=== PATIENT | female | born 1980 | race Caucasian/White ===

== ENCOUNTER 2021-06-01 09:00 | Outpatient (CLI) | payer BC, SELFPAY ==
--- NOTE | ~2021-06-01 | MM_ITS ---
EXAMINATION: MM screening denny BI w demi HISTORY: Screening mammogram TECHNIQUE: Craniocaudal and mediolateral oblique 3-D tomosynthesis images were obtained and synthetic 2-D images were generated. CAD analysis was submitted and interpreted. COMPARISON: None, baseline BREAST PARENCHYMAL COMPOSITION: The breasts are heterogeneously dense, which may obscure small masses . FINDINGS: RIGHT BREAST: There is a possible low density mass in the middle third of the central breast. No susp icious calcification or architectural distortion are identified. LEFT BREAST: There is a possible mass in the posterior third of the inner breast. No suspicious calci fication or architectural distortion are identified. IMPRESSION: 1. Possible breast masses. 2. Additional mammographic views and possible breast ultrasound are recommended to evaluate for malig yun and establish a baseline given that this is the first mammographic examination. BI-RADS Category 0: Incomplete: Needs additional imaging evaluation. Reviewed, dictated and finalized at location A. LSTERY TRIMMER IMPRESSION: 1. Possible breast masses. 2. Additional mammographic views and possible breast ultrasound are recommended to evaluate for malignancy and establish a baseline given that this is the fir st mammographic examination. BI-RADS Category 0: Incomplete: Needs additional imaging evaluation.
== END 2021-06-01 09:01 | disposition home or self-care (01) ==
LOC: ANHIMG 09:03
PROVIDERS: PCP Physician Assistant; Visit Provider Physician Assistant
DX: Z12.31 Encounter for screening mammogram for malignant neoplasm of breast (principal); R92.8 Other abnormal and inconclusive findings on diagnostic imaging of breast
CPT/HCPCS: 77063; 77067

== ENCOUNTER 2021-06-24 12:11 | Outpatient (CLI) | payer BC, SELFPAY ==
--- NOTE | ~2021-06-24 | MMUS_ITS ---
EXAMINATION: MM diagnostic denny BI w demi, US breast BI limited HISTORY: Possible breast masses on baseline screening mammogram TECHNIQUE: Additional 3-D tomosynthesis images of the breasts were performed and synthetic 2-D images were generated. CAD analysis was submitted and interpreted. High resolution limited bilateral breast ultrasound was performed. COMPARISON: 06/01/2021 FINDINGS: MAMMOGRAPHIC FINDINGS: No definite mass is seen in either breast with spot compression. There is no suspicious calcification or architectural distortion. ULTRASOUND: There is no evidence of focal abnormal solid or cystic mass in the vicinity of the mammographic findi ng in the right breast. There is a 6 mm x 4 mm oval, circumscribed, parallel, hypoechoic mass with no posterior features or internal vascularity at the 8:00 location in the left breast 4 cm from the nip ple. IMPRESSION: 1. No mammographic evidence of malignancy in either breast. Probably benign sonographically detected left breast mass. 2. Recommend 6 month follow-up targeted left breast ultrasound. BI-RADS category 3, probably benign findings. Reviewed, dictated and finalized at location A. L OF FORTUNE DEALER IMPRESSION: 1. No mammographic evidence of malignancy in either breast. Probably benign son ographically detected left breast mass. 2. Recommend 6 month follow-up targeted left breast ultrasound. BI-RADS category 3, probably benign findings.
== END 2021-06-24 12:12 | disposition home or self-care (01) ==
LOC: ANHIMG 12:12
PROVIDERS: PCP Physician Assistant; Visit Provider Physician Assistant
DX: R92.8 Other abnormal and inconclusive findings on diagnostic imaging of breast (principal)
CPT/HCPCS: 76642; 77062; 77066; G0279

== ENCOUNTER → 2021-07-27 13:31 | Outpatient (REF) | payer BC, SELFPAY | LOC: ANHLAB 13:31 | PROVIDERS: PCP Physician Assistant; Visit Provider Nurse Practitioner | DX: L72.11 Pilar cyst (principal) | CPT/HCPCS: 88304 ==

== ENCOUNTER → 2021-11-05 09:26 | Outpatient (CLI) | payer BC, SELFPAY ==
--- NOTE | ~2021-11-05 | XR_ITS ---
EXAMINATION: XR thoracic spine 3V DATE: 11/05/2021 09:48 INDICATION: Chronic thoracic back pain. TECHNIQUE: 3 views of thoracic spine were obtained. COMPARISON: None. FINDINGS: There is 11 degrees dextroscoliosis of thoracic spine. Vertebral body heights are normal. T here is mild to moderately decreased disc height at multiple levels in mid and upper thoracic spine. There are endplate osteophytes at most levels. IMPRESSION: 1. Moderate thoracic spondylosis. 2. Thoracic dextroscoliosis. Reviewed, dictated and finalized at location A.
== END ==
PROVIDERS: PCP Physician Assistant; Visit Provider Physician Assistant
DX: M47.24 Other spondylosis with radiculopathy, thoracic region (principal)
CPT/HCPCS: 72072

== ENCOUNTER 2021-12-22 10:22 | Outpatient (CLI) | payer BC, SELFPAY ==
--- NOTE | ~2021-12-22 | US_ITS ---
US breast LT limited DATE: 12/22/2021 10:51 INDICATION: Six-month follow-up of left breast 8:00 lesion TECHNIQUE: Targeted real-time and color flow imaging at 8:00 4 cm from nipple COMPARISON: 06/24/2021 bilateral Limited breast ultrasound 06/24/2021 bilateral diagnostic mammogram FINDINGS: Stable parallel circumscribed hypoechoic lesion measuring approximately 3 x 6.3 mm, without internal vascularity or posterior shadowing. The sonographic features are benign. Stability since further supports benign diagnosis. IMPRESSION: BI-RADS Category 2: Benign Recommendation: Routine annual mammographic screening Reviewed, dictated and finalized at Location A. Reviewed, dictated and finalized at location A.
== END 2021-12-22 10:23 | disposition home or self-care (01) ==
PROVIDERS: PCP Physician Assistant; Visit Provider Physician Assistant
DX: R92.8 Other abnormal and inconclusive findings on diagnostic imaging of breast (principal)
CPT/HCPCS: 76642

== ENCOUNTER 2022-07-07 08:26 | Outpatient (CLI) | payer BC, SELFPAY ==
--- NOTE | ~2022-07-07 | MM_ITS ---
EXAMINATION: MM screening denny BI w demi HISTORY: Screening mammogram TECHNIQUE: Craniocaudal and mediolateral oblique 3-D tomosynthesis images were obtained and synthetic 2-D images were generated. CAD analysis was submitted and interpreted. COMPARISON: 12/22/2021 left Limited breast ultrasound examination 06/24/2021 diagnostic bilateral mammogram and Limited bilateral breast ultrasound examination 06/01/2021 bilateral screening mammogram BREAST PARENCHYMAL COMPOSITION: The breasts are extremely dense, which lowers the sensitivity of mamm ography. FINDINGS: There is no evidence of suspicious mass, calcification, or architectural distortion to sugg est malignancy in either breast. There has been no suspicious interval change. IMPRESSION: 1. No mammographic evidence of malignancy. 2. Recommend routine screening mammography in one year. BI-RADS Category 1: Negative Reviewed, dictated and finalized at location A. IVIST POLITICAL HISTORY
== END 2022-07-07 08:27 | disposition home or self-care (01) ==
LOC: ANHIMG 08:28
PROVIDERS: PCP Physician Assistant; Visit Provider Physician Assistant
DX: Z12.31 Encounter for screening mammogram for malignant neoplasm of breast (principal)
CPT/HCPCS: 77063; 77067

== ENCOUNTER 2023-09-08 14:10 | Outpatient (CLI) | payer BC, SELFPAY ==
--- NOTE | ~2023-09-08 | MM_ITS ---
EXAMINATION: MM screening denny BI w demi HISTORY: Screening TECHNIQUE: Craniocaudal and mediolateral oblique 3-D tomosynthesis images were obtained and synthetic 2-D images were generated. CAD analysis was submitted and interpreted. COMPARISON: Comparison to multiple prior studies sequentially, with oldest reviewed study dated 07/2021. BREAST PARENCHYMAL COMPOSITION: Dense: The breasts are extremely dense, which lowers the sensitivity of mammography. FINDINGS: There is no evidence of suspicious mass, calcification, or architectural distortion to sugg est malignancy in either breast. There has been no suspicious interval change. IMPRESSION: 1. No mammographic evidence of malignancy. 2. Recommend routine screening mammography in one year. BI-RADS Category 1: Negative Reviewed, dictated and finalized at location A.
== END 2023-09-08 14:11 | disposition home or self-care (01) ==
PROVIDERS: PCP Physician Assistant; Visit Provider Obstetrics & Gynecology
DX: Z12.31 Encounter for screening mammogram for malignant neoplasm of breast (principal)
CPT/HCPCS: 77063; 77067

== ENCOUNTER 2024-05-28 15:54 | Outpatient (CLI) | payer BC, SELFPAY ==
--- NOTE | ~2024-05-28 | XR_ITS ---
CHEST RADIOGRAPH, PA AND LATERAL CLINICAL HISTORY: Chronic cough, COUGH FOR 3 WEEKS . COMPARISON: None available TECHNIQUE: PA and lateral views of the chest. FINDINGS The cardiomediastinal silhouette is unremarkable. Increased density projecting over the bilateral mid to lower lung baer, felt to be overlying soft t issues rather than intrinsic parenchymal disease. The lungs are clear. Visualized osseous structures and soft tissues are unremarkable. IMPRESSION: No focal infiltrate or effusion. Reviewed, dictated and finalized at location A. IO CLINICIAN
== END 2024-05-28 15:55 | disposition home or self-care (01) ==
PROVIDERS: PCP Physician Assistant; Visit Provider Physician Assistant
DX: R05.3 Chronic cough (principal)
CPT/HCPCS: 71046

== ENCOUNTER 2024-09-13 16:07 | Outpatient (CLI) | payer BC, SELFPAY ==
--- NOTE | ~2024-09-13 | MM_ITS ---
EXAMINATION: MM screening denny BI w demi HISTORY: Screening TECHNIQUE: Craniocaudal and mediolateral oblique 3-D tomosynthesis images were obtained and synthetic 2-D images were generated. CAD analysis was submitted and interpreted. COMPARISON: Comparison to multiple prior studies sequentially, with oldest reviewed study dated 07/2021. BREAST PARENCHYMAL COMPOSITION: Dense: The breasts are extremely dense, which lowers the sensitivity of mammography. FINDINGS: There is a new mass in the lower inner quadrant of the left breast, posterior third. The ri ght breast is stable without evidence for malignancy. IMPRESSION: 1. New left breast mass. 2. Additional mammographic views and possible breast ultrasound are recommended. BI-RADS Category 0: Incomplete: Needs additional imaging evaluation. Reviewed, dictated and finalized at location B. IMPRESSION: 1. New left breast mass. 2. Additional mammographic views and possible breast ultrasound are recommended . BI-RADS Category 0: Incomplete: Needs additional imaging evaluation.
--- OUTSIDE RECORDS SUMMARY | 2024-09-13 16:10 | XMS_ITS | Data Portability ---
Author Organization [facility] Lupis PORTER Address [address] [place] [address] Care Team Providers Care Control System Computer Scientist Name Role Phone BINDU TERRELL Sales Service Coordinator Assessment Encounter Date Assessment Date Assessment LastModified by Organization Details LastModified Time 03/11/2016 03/11/2016 38 weeks, baby #4 arrives tuesday Not available 03/11/2016 15:50:43 04/26/2016 04/26/2016 Post exam following third c/s is normal. scar OK, baby great, bottle feeding, vasectomy planned Not available 04/26/2016 11:11:37 06/27/2024 06/27/2024 Mammogram scheduled for august [address] kemi govea, fall 2023, all clear [email or web address] Not available 06/27/2024 10:16:08 Plan of Treatment Reminders Order Date Submit Date Provider Last Modified By Organization Details Last Modified Time Details Appointments ANY 15 2025 09:00A GABBIE Bates Not available Not available Not available Lab vitami n D, 25-hyd sari, total, serum 2023 024 yuli [facility], [address], [place], [address], 06/14/2024 16:40:32 TSH + free T4, serum 2023 024 JU[email or web address], [address], [place], [address], 05/25/2024 09:47:57 lipid panel, serum 2023 024 [facility], [address], [place], [address], 05/25/2024 09:47:57 CMP, serum or plasma 2023 024 [facility], [address], [address], [place], [address], 06/14/2024 16:39:55 CBC w/ auto diff 2023 024 [facility], [address], [address], [place], [address], 06/14/2024 16:40:13 vitami n B12 + folate , serum or blood 2023 024 [facility], [address], [address], [place], [address], 05/25/2024 09:47:58 HbA1c (hemog lobin A1c), blood 2023 024 [facility], [address], [address], [place], [address], 06/14/2024 16:39:08 pap, LB + reflex to HR HPV if ASC-U 2015 016 [id number] [facility], [address] , [place], [address], 05/15/2016 04:32:38 Referral dermat ologis t referr al 2023 024 [facility], [address] [place] [address] , [place], [address], 11/10/2023 11:48:35 Procedures None record ed. Surgeries None record ed. Imaging None record ed. Medication Orders None record ed. Patient TargetsNo targets recorded. Patient InstructionsNo instructions recorded. Reason for Referral Satellite Tv Technician Referral for L esion of skin of face macular faint, erythematic type small lesion between eyebrows. Referring Physician: Odalys Mace, Internal Medicine, Encounter Date: 09/23/2023 Results Created Date Observation Date Name Description Value Unit Range Abnormal Flag Note LastModifiedBy Organization Detail LastModifiedTime 04/26/20 16 04/29/2016 pap, LB + refle x HPV mRNA E6/E7 clinical information: normal Postp artum FOLLO W-UP Not Available [address], [address], 04/29/2016 11:46:55 04/26/20 16 04/29/2016 pap, LB + refle x HPV mRNA E6/E7 LMP: normal INFOR MATIO N NOT PROVI DED Not Available [address], [address], 04/29/2016 11:46:55 04/26/20 16 04/29/2016 pap, LB + refle x HPV mRNA E6/E7 prev. Pap: normal INFOR MATIO N NOT PROVI DED Not Available [address], [address], 04/29/2016 11:46:55 04/26/20 16 04/29/2016 pap, LB + refle x HPV mRNA E6/E7 prev. BX: normal INFOR MATIO N NOT PROVI DED Not Available [address], [address], 04/29/2016 11:46:55 04/26/20 16 04/29/2016 pap, LB + refle x HPV mRNA E6/E7 source: Cervix normal Not Available [address], [address], 04/29/2016 11:46:55 04/26/20 16 04/29/2016 pap, LB + refle x HPV mRNA E6/E7 statement of adequacy: normal Satis facto ry for evalu ation . Endoc ervic al/tr ansfo rmati on zone compo nent prese nt. Not Available [address] [address] [place], [address], 04/29/2016 11:46:55 04/26/20 16 04/29/2016 pap, LB + refle x HPV mRNA E6/E7 interpretati on/result: normal Negat kaya for intra epith elial lesio n or malig yun . Not Available [address], [place], [address], 04/29/2016 11:46:55 04/26/20 16 04/29/2016 pap, LB + refle x HPV mRNA E6/E7 comment: normal This case could not be evalu ated with compu ter david abril techn ology . The slide was zita hicks chaim accor ding to felton latham . Not Available [address], [place], [address], 04/29/2016 11:46:55 04/26/20 16 04/29/2016 pap, LB + refle x HPV mRNA E6/E7 cytotechnolo gist: normal BKA, CT( CP) CT scree daphne locat ion: [address] [address] [place] [address] Not Available [address] [address] [place], [address], 04/29/2016 11:46:55 04/27/20 23 04/27/2023 pap, IG + HR HPV Pap, Ig+HR HPV negati ve Not Available Not Available 17:08:32 05/28/20 24 05/28/2024 XR, chest , 2 view No observ ation record ed. [facility] [address], [place], [address], 05/28/2024 18:00:51 Result Notes None recorded. Problems Name Problem SNOMED Code Status Onset Date Resolution Date Notes Provider Name and Address Organization Details Recorded Time Body mass index 20-24 - normal 290938451 Active 2024 Federica Lassiter MA null, [place] - [facility] 5 10:03:26 Vitamin D deficiency 71004533 Active 2024 GABBIE Elias Attn: Adriana g,[address] [facility], [place], [address], [place] [facility] 5 18:39:55 Long-term drug therapy Active 2024 GABBIE Elias Attn: Accountin g,[address] [facility], [place], [address], [place] [facility] 5 18:40:06 Past history of section 991349645 Active Emily Isryamileth nena [place], [place] [facility] 6 15:29:17 Past history of section 798874226 Completed Emily Isringnicolegabriele barrett null, [place] - [facility] 6 15:29:17 Problem Notes None recorded. Procedures Surgical History Date Name Laterality Status Provider Name and Address Organization Details Recorded Time 6 Suture/Staple removal completed Susana Santoro MA [place] [facility] 03/19/2016 14:39:29 8 Caesarean Section completed Susana Santoro [place] [facility] 09/17/2015 12:06:48 D & c after delivery completed Federica Lassiter [place] [facility] 09/23/2023 14:54:19 Imaging Results Imaging Date Name Status LastModified by Organiz ation Details LastModified Time 05/28/2024 XR, chest, 2 view completed [facility] [address], [place], [address], 05/28/2024 18:00:51 Procedure Notes None recorded. Medical Equipment None Reported. Allergies No known drug allergies Medications Name Sig Start Date Stop Date Status Note LastModified by Organization Details LastModified Time amoxicillin 500 mg capsule 09/22 completed Not Available Not Available Not Available azithromycin 250 mg tablet 09/22 completed Not Available Not Available Not Available benzonatate 200 mg capsule 09/22 completed Not Available Not Available Not Available hydrocodone 5 mg-acetamino phen 325 mg tablet 09/22 completed Not Available Not Available Not Available prednisone 20 mg tablet TAKE 2 TABLETS BY MOUTH EVERY DAY FOR 5 DAYS FOR COUGH. START 05-29-2406/27 completed Not Available Not Available Not Available ergocalcifer ol (vitamin D2) 1,250 mcg (50,000 unit) capsule TAKE 1 CAPSULE BY MOUTH EVERY WEEK active Not Available Not Available No t Available ibuprofen 600 mg tablet 09/22 completed Not Available Not Available Not Available cefdinir 300 mg capsule TAKE 1 CAPSULE BY MOUTH EVERY 12 HOURS 06/27 completed Not Available Not Available Not Available Fish Oil active Not Available Not Avai lable Not Available Vitamin B12 2,500 mcg tablet Take by oral route. active Not Available Not Available No t Available Vitals Date Recorded Body height Body mass index (BMI) Body weight Oxygen saturation Oxygen saturation in Arterial blood by Pulse oximetry Respiratory rate Heart rate Systolic blood pressure Diastolic blood pressure Provider Name and Address Organization Details Last Updated DateTime 4 162.56 cm 23.5 kg/m2 62947.5 9 g 99 % 99 % 20 /min 67 /min 108 mm[Hg] 68 mm[Hg] Federica Lassiter MA [facility] 14:21:52 Date Recorded Systolic blood pressure Diastolic blood pressure Provider Name and Address Organization Details Last Updated DateTime 09/23/2023 110 mm[Hg] 70 mm[Hg] GABBIE Elias Attn: Accounting,[address] [place], [address], [facility] 09/23/2023 14:46:11 Date Recorded Body height Body mass index (BMI) Body weight Respiratory rate Oxygen saturation Oxygen saturation in Arterial blood by Pulse oximetry Heart rate Systolic blood pressure Diastolic blood pressure Provider Name and Address Organization Details Last Updated DateTime 5 162.56 cm 23.7 kg/m2 07258.7 5 g 20 /min 100 % 100 % 68 /min 116 mm[Hg] 82 mm[Hg] Federica Lassiter MA [facility] 5 10:04:55 Date Recorded Systolic blood pressure Diastolic blood pressure Provider Name and Address Organization Details Last Updated DateTime 06/27/2024 120 mm[Hg] 80 mm[Hg] GABBIE Elias Attn: Accounting,[address] [facility], [place], [address], [facility] 06/27/2024 10:20:30 Date Recorded Body weight Body mass index (BMI) Body height Systolic blood pressure Diastolic blood pressure Provider Name and Address Organization Details Last Updated DateTime 03/11/2016 78621.22 498 g 26.4 kg/m2 162.56 cm 128 mm[Hg] 72 mm[Hg] Susana solano MA [facility] 6 15:28:54 Date Recorded Body height Body weight Body mass index (BMI) Systolic blood pressure Diastolic blood pressure Provider Name and Address Organization Details Last Updated DateTime 03/19/2016 162.56 cm 38917.52 417 g 24.2 kg/m2 112 mm[Hg] 66 mm[Hg] Susana solano MA [facility] 6 14:44:57 Date Recorded Body height Body weight Body mass index (BMI) Systolic blood pressure Diastolic blood pressure Provider Name and Address Organization Details Last Updated DateTime 04/26/2016 162.56 cm 42905.75 g 23.7 kg/m2 98 mm[Hg] 70 mm[Hg] Susana solano MA [facility] 6 10:59:34 Social History Question Answer Notes LastModified by Organizat ion Details LastModified Time Tobacco Smoking Status Never Smoker Susana Santoro MA null, [facility] 09/17/2015 11:39:29 What Is Your Level Of Alcohol Consumption? None Information not available 09/23/2023 Are You Blind Or Do You Have Difficulty Seeing? No Information n ot available 09/23/2023 What Is Your Level Of Caffeine Consumption? None Information not available 09/23/2023 In The 14 Days Before Symptom Onset, Have You Had Close Contact With A Laboratory-confirm ed COVID-19 While That Case Was Ill? No Information n ot available 09/23/2023 In The 14 Days Before Symptom Onset, Have You Had Close Contact With A Person Who Is Under Investigation For COVID-19 While That Person Was Ill? No Information not available 09/23/2023 Have You Been To An Area Known To Be High Risk For COVID-19? No Information not available 09/23/2023 Are You Currently Employed? Yes Information not available 09/23/2023 Are You Deaf Or Do You Have Serious Difficulty Hearing? No Information not available 09/23/2023 What Type Of Diet Are You Following? REGULAR Information n ot available 09/23/2023 What Is Your Occupation? [employer] Information not available 09/23/2023 Are There Any Guns Present In Your Home? No Information not available 09/23/2023 What Was The Date Of Your Most Recent Tobacco Screening? 06/27/2024 Information not available 06/27/2024 How Many Children Do You Have? 3 [email or web address] Information not available 09/17/2015 What Is Your Relationship Status? Information not available 09/23/2023 Do You Use Your Seat Belt Or Car Seat Routinely? Yes Information not available 09/23/2023 Do You Have Smoke And Carbon Monoxide Detectors In Your Home? Yes Information not available 09/23/2023 Do You Feel Stressed (tense, Restless, Nervous, Or Anxious, Or Unable To Sleep At Night)? [id number] Information not available 09/23/2023 Do You Use Any Illicit Or Recreational Drugs? No Information not available 09/23/2023 Do You Use Sunscreen Routinely? No Information not available 09/23/2023 Has Tobacco Cessation Counseling Been Provided? Yes Information not available 09/23/2023 On What Date Was Tobacco Cessation Counseling Provided? 06/27/2024 Information not available 06/27/2024 Do You Or Have You Ever Used Any Other Forms Of Tobacco Or Nicotine? No Information not available 09/23/2023 Sex: Female Functional Status Question Answer Note LastModified by Organizat ion Details LastModified Time Are you able to care for yourself? Yes Information not available 09/23/2023 What is your exercise level? Occasional walking Information not available 09/23/2023 Mental Status None recorded. Family History Relationship Description Onset Age of this Age Resolved Age Notes LastModified by Organization Details LastModified Time Paternal Grandmother Malignant tumor of breast [email or web address] Not available 15:28:54 Father Alcohol abuse [email or web address] Not available 2023 14:54:35 Father Hypercholest erolemia [email or web address] Not available 2023 14:55:14 Brother Asthma [email or web address] Not available 09/23/2023 14:54:39 Brother Depressive disorder [email or web address] Not available 2023 14:54:47 Mother Heart disease [email or web address] Not available 2023 14:54:59 Mother Hypertensive disorder [email or web address] Not available 2023 14:55:07 Mother Hypercholest erolemia [email or web address] Not available 2023 14:55:14 Mother Migraine [email or web address] Not availabl e 09/23/2023 14:55:20 Mother Myocardial infarction [email or web address] Not available 09/22 14:55:27 Mother Osteoporosis [email or web address] Not avai lable 09/23/2023 14:55:34 Notes:other CA Medical History Condition Response Coronary Artery Disease N Kidney Cyst N Blood Diseases N Hyperthyroidism N Blood disorders N Blood Transfusion N MRSA N Emphysema N Depression N COPD N Blood Clots N Pneumonia N Premature N Peripheral Arterial Disease N Edema N TIA N Headaches/Migraines N Anxiety Disorder N Obesity N Polyps N Infertility N Acid Reflux (GERD) N Hematuria N Stroke N Neck Injury N Polio N Hospital Admission other than N Neurologic Disorder N Other Sleep Disorders N Rheumatoid Arthritis N Fibromyalgia N Abdominal Aortic Aneurysm Repair N Kidney Disease N Heart Conditions N Heart Disease/Heart Problems N Hospitalizations N Brain Tumors N Acne N Skin Problems N Eating Disorder N Meningitis N Constipation N Tuberculosis N Cerebral Palsy N Myocardial Infarction N Asthma N Substance Abuse N Peripheral Vascular Disease N Vertigo N Sleep Disorder N Cirrhosis N Pulmonary Embolism N Chicken Pox N Hematologic Disease N Flomax Use Past or Present N Anxiety/Depression N Thyroid Disease N Colon Cancer N Lung Disease N Glaucoma N Developmental or Behavioral Disorders N Bipolar N Pacemaker N Diverticulitis/Diverticulosis N Orthopedic Problems N Anesthesia Complications N Orthotics N Head Injury/Concussion N Congenital Anomalies N Montes Bite N Chronic Kidney Disease N Endometriosis N Liver Disease N Schizophrenia N Dialysis N Speech Delay N Chronic Obstructive Pulmonary Disease N Parkinson's Disease N Thyroid Problems N GI Problems N Developmental Delay N Anemia N Multiple Sclerosis N Immune System Disorder N Colon Polyps N Heart Attack ([place]) N Diabetes N Cardiomyopathy N Blood Transfusions N Heart Problems/Murmur N Eye Trauma N Congestive Heart Failure (CHF) N Valvular Heart Disease N Hyperlipidemia N Double Vision N Abuse/Domestic Violence N Hepatitis B N Lupus N Epilepsy/Seizures N Reflux/GERD N Aneurysm N Heart Disease N Bronchitis N Pre-Eclampsia N Hypertension N Heart Failure N Other N Gout N High Blood Pressure N Atrial Fibrillation N Kidney Stones N Head Trauma/Injury N Congenital Heart Disease N Spine Problems N Gastrointestinal Disease N Lung Mass N Sinusitis N Obstructive Sleep Apnea N Muscle, Joint, or Bone Problems N Autoimmune disease N Vision or Eye Problems N Arthritis N Blood Clot N Cancer N Seasonal allergies N Leg or Foot Ulcers N Raynaud's Disease N Aortic Aneurysm N Arrhythmia N Headaches N Heart Problems N Ambloypia N Ear or Hearing Problems N Hyperparathyroidism N Migraines N Artificial Joints N Kidney or Bladder Problems N NSAID Use N Encephalitis N PTSD N Ulcers N Prostate Hypertrophy N Bleeding Disorder N AIDS/HIV N Urinary Tract Infection N Back Problems N Allergies N Atrial Flutter N GERD/Reflux N Hepatitis N Autism Spectrum Disorder (ASD) N Breast Cancer N Hernia N Hypothyroidism N Breast Problem N Genitourinary Disease N Deep Vein Thrombosis N Varicose Veins N Cystic Fibrosis N Hearing Loss N Developmental Problems N Carotid Disease N Vitamin D Deficiency N ADHD N Bladder or Kidney Problems N High Cholesterol N Meniers N Valvular Abnormalities N Psychiatric/Mental Health Condition N Organ Transplant N Foot Deformity N Allergies/Hayfever N Dyslipidemia N Hyponatremia N Diabetic Eye Disease N Osteoporosis/Osteopenia N Back Pain N Proteinuria N Mental Illness N Neurological Problems N Ovarian Cancer N Bedwetting N Seizures/Epilepsy N Kidney Failure N Ocular trauma N Diverticulitis N Dementia N Sleep Apnea N Mental Problems N Warfarin Management N Osteoporosis N Gynecological History Statement/Question Response Flow Moderate Date of LMP 05/13/2024 Menses Monthly Y Duration of Flow (days) 5 Current Control Method None LMP Approximate Desired Control Method Partner Vas ectomy Obstetrics History GPAL:G 4 P 2 2 1 4 Type Value Multiple Births 2 Full Term 2 Induced 0 Spontaneous 1 Premature 2 Living 4 Total 4 Immunizations Vaccine Type Date Status Note Provider Nam e and Address Organization Details Recorded Time Influenza, MDCK, quadrivalent, PF 0 completed SHANA [place], [place] [facility] 06/27/2024 10:03:00 COVID-19, mRNA, LNP-S, PF, 100 mcg/0.5mL dose or 50 mcg/0.25mL dose 1 completed SHA[place] [facility] 06/27/2024 10:03:00 COVID-19, mRNA, LNP-S, PF, 100 mcg/0.5mL dose or 50 mcg/0.25mL dose 1 completed SHA[place] [facility] 06/27/2024 10:03:00 COVID-19, mRNA, LNP-S, PF, 100 mcg/0.5mL dose or 50 mcg/0.25mL dose 1 completed SHA[place] [facility] 06/27/2024 10:03:00 Tdap 6 completed SHA[place] [facility] 06/27/2024 10:03:00 Tdap 5 completed SHA[place] [facility] 06/27/2024 10:03:00 Influenza, split virus, trivalent, preservative 1 completed SHA[place] [facility] 06/27/2024 10:03:00 Influenza, split virus, quadrivalent, PF 6 completed SHA[place] [facility] 06/27/2024 10:03:00 Past Encounters Encounter ID Performer Location Encounter Start Date Encounter Closed Date Diagnosis/Indication Diagnosis SNOMED-CT Code Diagnosis ICD10 Code Diagnosis Note [id number] [facility] ([address]) [address] [place] [address] 09/17/2015 11:15:41 09/18/2015 12:28:46 Normal 85874391 Z34.91 Past pregn nayely history of section 482744891 Z98.89 [id number] Emily [facility] ([place] [address]) [address] [place] [address] 10/13/2015 14:14:28 10/13/2015 16:00:01 Normal 54352980 Z34.91 [id number] Emily Brightsissy [facility] ([place] [address]) [address] [place] [address] 11/06/2015 15:11:48 11/06/2015 16:33:30 Normal 05208828 Z34.91 Past pregn nayely history of section 009769652 Z98.89 [id number] Patricia Tobar RN [facility] ([place] [address]) [address] [place] [address] 12/04/2015 11:55:46 12/04/2015 18:20:39 Normal 99056161 Z34.91 Past pregn nayely history of section 644190889 Z98.89 [id number] MD [facility] Ros[facility] ([place] [address]) [address] [place] [address] 12/25/2015 14:20:37 12/25/2015 15:26:11 Normal 02757865 Z34.91 Past pregn nayely history of section 150835826 Z98.89 [id number] MD [facility] ([place] [address]) [address] [place] [address] 01/15/2016 11:12:15 01/15/2016 14:27:53 Normal 58705147 Z34.91 Past pregn nayely history of section 299432929 Z98.89 [id number] MD [facility] ([place] [address]) [address] [place] [address] 02/06/2016 11:34:12 02/06/2016 12:57:50 Normal 20224247 Z34.91 Past pregn nayely history of section 264519016 Z98.89 [id number] MD A[facility]ina [facility] ([place] [address]) [address] [place] [address] 02/23/2016 10:44:52 02/23/2016 13:04:46 Normal 57888186 Z34.91 Past pregn nayely history of section 252966528 Z98.89 [id number] MD A[facility]ina Rosas ([place] [address]) [address] [place] [address] 03/01/2016 14:46:14 03/01/2016 16:17:08 Normal 57087368 Z34.91 Past pregn nayely history of section 897964615 Z98.89 [id number] MD A[facility]ina Rosas ([place] [address]) [address] [place] [address] 03/11/2016 15:15:40 03/12/2016 12:14:15 Normal 57243791 Z34.91 Past pregn nayely history of section 232364667 Z98.190 [id number] MD [facility]ina [facility] ([place] [address]) [address] [place] [address] 03/19/2016 14:08:58 03/22/2016 10:12:10 Removal of juan david 67883641 Z48.02 [id number] MD [facility]ina [facility] ([place] [address]) [address] [place] [address] 04/26/2016 10:40:40 04/26/2016 14:32:49 care 983487915 Z39.2 [id number] GABBIE Elias [facility] [address] [place] [address] 09/23/2023 14:04:24 09/23/2023 14:53:57 Lesion of skin of face 5701576474 06 L98.9 refer to Derm for skin lesion evaluation Cholesterol screening 27 3565895 Z13.220 fasting lipids due in apr. Diabetes m ellitus screening 391799386 Z13.1 a1c screening in Dec Long-term drug therapy 229370578 Z79.899 cmp, cbc and b12, folate labs are due in dec Vitamin D deficiency 347 31251 E55.9 pt is on high dose Rx. will check updated vit D lab in dec Thyroid di sorder screening 687602247 Z13.29 screening thyroid labs are due in apr. [id number] GABBIE Elias [facility] Jarad Murray [address] [place] [address] 06/27/2024 09:39:18 06/27/2024 10:25:32 Body mass index 20-24 - normal 245522717 Z68.23 BMI is 23.7 Vitamin D deficiency 347 34005 E55.9 Patient is taking vitamin-D high-dose supplement once weekly Long-term drug therapy 729324264 Z79.899 All labs are reviewed and up-to-date Adult [facility] examination 190229094 Z00.00 Annual wellness exam completed Health Concerns Section Related Observation LastModified by Organization Detai ls LastModified Time None Recorded Concern Status LastModified by Organization Details LastModified Time None Recorded Advance Directives Directive None Recorded Payers Encounter Date Sequence Insurance Name Policy Number Policy Broderick Covered Member ID Broderick Member ID Guarantor Name 03/11/2016 1 [facility] Glad to Have You [employer] ([facility]) [id number] [employer] [id number] [employer] 03/19/2016 1 [facility] [employer] to [employer] You [employer] ([facility] [employer]) [id number] [employer] [id number] [employer] 04/26/2016 1 [facility] [employer] ([employer]) [id number] [employer] [id number] [employer] 09/23/2023 1 [facility] [id number] [employer] [id number] [employer] 06/27/2024 1 [facility] [id number] [employer] [id number] [employer] Notes Date Note Type Note Provider Name and Address Organization Details Recorded Time 09/23/2023 text/html pt here to re-establish. she needs Derm referral for faint forehead skin lesion that she noted. is due for routine labs. GABBIE Elias Attn: Accounting,[address] [place], [address], [facility] 09/29/2023 00:09:42 06/27/2024 text/html Patient is here for annual wellness exam. She does take vitamin-D high-dose supplement for deficiency and has labs up-to-date. She has no new complaints. GABBIE Elias Attn: Accounting,[address] [facility], [place], [address], [facility] 06/27/2024 18:40:34 OBGyn Episode Ob Episode Information Episode Created Date Number of Fetuses Patient Bloodtype Patient rh Status Prepregnancy Weight lbs Domestic Partner Domestic Partner Phone Father Name Assembler Engine Status 09/17/19 16 2 CLOSED Fetus Data First Name Last Name Admitted to NICU Weight (g) Sex Living Outcome Pediatric Complications Fetus ID Race Codes Race Delivery Type 1559.22 25 M Prematur e [id number] 1871.06 7 M Prematur e [id number] Carl Calculation Initial Carl Date Initial Exam Date Initial Exam Provider Initial Ultrasound Date Last Menstrual Period Date Ultra Sound Weeks Gestation 0 Eighteen To Twenty Week Carl Update Ultra Sound Date Fundal Height At Umbil Quickening Date Ultra Sound Latest Weeks Gestation Final Carl Confirmed By Final Carl Confirmed Date Final Carl Date Ultra Sound Latest Days Gestation 0 0 Menstrual History Last Menstrual Date Menses Monthly On Bcp Conception Prior Menses Frequency Hcg Plus Date Menarche Onset Age Delivery Information Delivery Date Delivery Type Labor Anesthesia Weeks Gestation Incision Type Labor Labor Length Hrs Delivered By Post Complications Tubal Sterilization Discharge Date Comments [address] [place] [address] [place]. Discharge Information Feeding Method Contraceptive Method Maternal HG B and HCT Levels Ob Episode Information Episode Created Date Number of Fetuses Patient Bloodtype Patient rh Status Prepregnancy Weight lbs Domestic Partner Domestic Partner Phone Father Name Assembler Engine Status 09/17/19 16 1 CLOSED Fetus Data First Name Last Name Admitted to NICU Weight (g) Sex Living Outcome Pediatric Complications Fetus ID Race Codes Race Delivery Type 2778.25 1 F Full Term [id number] Carl Calculation Initial Carl Date Initial Exam Date Initial Exam Provider Initial Ultrasound Date Last Menstrual Period Date Ultra Sound Weeks Gestation 0 Eighteen To Twenty Week Carl Update Ultra Sound Date Fundal Height At Umbil Quickening Date Ultra Sound Latest Weeks Gestation Final Carl Confirmed By Final Carl Confirmed Date Final Carl Date Ultra Sound Latest Days Gestation 0 0 Menstrual History Last Menstrual Date Menses Monthly On Bcp Conception Prior Menses Frequency Hcg Plus Date Menarche Onset Age Delivery Information Delivery Date Delivery Type Labor Anesthesia Weeks Gestation Incision Type Labor Labor Length Hrs Delivered By Post Complications Tubal Sterilization Discharge Date Comments 8 [facility] [place] Discharge Information Feeding Method Contraceptive Method Maternal HG B and HCT Levels Ob Episode Information Episode Created Date Number of Fetuses Patient Bloodtype Patient rh Status Prepregnancy Weight lbs Domestic Partner Domestic Partner Phone Father Name Assembler Engine Status 09/17/19 16 2 DELETED Carl Calculation Initial Carl Date Initial Exam Date Initial Exam Provider Initial Ultrasound Date Last Menstrual Period Date Ultra Sound Weeks Gestation 0 Eighteen To Twenty Week Carl Update Ultra Sound Date Fundal Height At Umbil Quickening Date Ultra Sound Latest Weeks Gestation Final Carl Confirmed By Final Carl Confirmed Date Final Carl Date Ultra Sound Latest Days Gestation 0 0 Menstrual History Last Menstrual Date Menses Monthly On Bcp Conception Prior Menses Frequency Hcg Plus Date Menarche Onset Age Delivery Information Delivery Date Delivery Type Labor Anesthesia Weeks Gestation Incision Type Labor Labor Length Hrs Delivered By Post Complications Tubal Sterilization Discharge Date Comments 0 33 Discharge Information Feeding Method Contraceptive Method Maternal HG B and HCT Levels Ob Episode Information Episode Created Date Number of Fetuses Patient Bloodtype Patient rh Status Prepregnancy Weight lbs Domestic Partner Domestic Partner Phone Father Name Assembler Engine Status 09/17/19 16 1 O Positive Desires [facility] delivery CLOSED Fetus Data First Name Last Name Admitted to NICU Weight (g) Sex Living Outcome Pediatric Complications Fetus ID Race Codes Race Delivery Type Silvia aleksey Gould false 3798.83 3 F true Full Term [id number] White Problems Problem Notes Problem Name Start Date End Date Resolution Snomed Code Not e Past history of ce sarean section [id number] Carl Calculation Initial Carl Date Initial Exam Date Initial Exam Provider Initial Ultrasound Date Last Menstrual Period Date Ultra Sound Weeks Gestation 03/22/2016 09/17/2015 [email or web address] 10/23/2015 06/16/2015 18 Eighteen To Twenty Week Carl Update Ultra Sound Date Fundal Height At Umbil Quickening Date Ultra Sound Latest Weeks Gestation Final Carl Confirmed By Final Carl Confirmed Date Final Carl Date Ultra Sound Latest Days Gestation 0 03/22/20 16 0 Pre-sheryl Flowsheet Flowsheet Date 09/17/2015 Andrea Score Blood Edema Fundus Height Fundus Units Glucose Ketones Leukocytes Nitrite Labor Signs Protein Cervic Dilation Cervic Effacement Cervic Station 13 wks 0cm 0% -4 Type Weight in lbs Pre/Post Dialysis Refused 133.861789477601 BP Diastolic BP Location Tested BP Systolic BP Type 62 92 sitting Fetus Heart Rate Present A 156 Present Fetus Movement Comments Previous c/s x 2 , plan repe at at 39 weeks, doing well Flowsheet Date 10/13/2015 Andrea Score Blood Edema Fundus Height Fundus Units Glucose Ketones Leukocytes Nitrite Labor Signs Protein Cervic Dilation Cervic Effacement Cervic Station none neg Type Weight in lbs Pre/Post Dialysis Refused 136.973629258339 BP Diastolic BP Location Tested BP Systolic BP Type 64 106 sitting Fetus Heart Rate Present A 155 Present Fetus Movement Comments 17 weeks, doing well. US nex t week, maybe msafp next apt. Flowsheet Date 11/06/2015 Andrea Score Blood Edema Fundus Height Fundus Units Glucose Ketones Leukocytes Nitrite Labor Signs Protein Cervic Dilation Cervic Effacement Cervic Station 20 wks Type Weight in lbs Pre/Post Dialysis Refused 139.881841675256 BP Diastolic BP Location Tested BP Systolic BP Type 62 92 sitting Fetus Heart Rate Present A 156 Present Fetus Movement A Yes Comments Girl #2 (out of 4) declines [facility].Would like BTL but is going to [facility] due to insurance - likely vasectomy? Flowsheet Date 12/04/2015 Andrea Score Blood Edema Fundus Height Fundus Units Glucose Ketones Leukocytes Nitrite Labor Signs Protein Cervic Dilation Cervic Effacement Cervic Station 24 cm Type Weight in lbs Pre/Post Dialysis Refused BP Diastolic BP Location Tested BP Systolic BP Type Fetus Heart Rate Present Fetus Movement A Yes Comments doing well, discussed sugar testcomputers down today Flowsheet Date 12/25/2015 Andrea Score Blood Edema Fundus Height Fundus Units Glucose Ketones Leukocytes Nitrite Labor Signs Protein Cervic Dilation Cervic Effacement Cervic Station 26 cm Type Weight in lbs Pre/Post Dialysis Refused 145.0333787932 BP Diastolic BP Location Tested BP Systolic BP Type 56 104 sitting Fetus Heart Rate Present A 143 Present Fetus Movement A Yes Comments doing well, passed sugar jay t, no new issues Flowsheet Date 01/15/2016 Andrea Score Blood Edema Fundus Height Fundus Units Glucose Ketones Leukocytes Nitrite Labor Signs Protein Cervic Dilation Cervic Effacement Cervic Station none 28 cm none neg Type Weight in lbs Pre/Post Dialysis Refused 146.481168294567 BP Diastolic BP Location Tested BP Systolic BP Type 66 98 sitting Fetus Heart Rate Present A 142 Fetus Movement A Yes Comments 30 weeks, doing well, no new issues Priyanka for girls name - plan 39 week repeat c/s Flowsheet Date 02/06/2016 Andrea Score Blood Edema Fundus Height Fundus Units Glucose Ketones Leukocytes Nitrite Labor Signs Protein Cervic Dilation Cervic Effacement Cervic Station 31 cm Type Weight in lbs Pre/Post Dialysis Refused 149.899536053379 BP Diastolic BP Location Tested BP Systolic BP Type 76 108 sitting Fetus Heart Rate Present A 146 Present Fetus Movement A Yes Comments Great questions. Repeat c/s planned for 03/15 @ [facility] Flowsheet Date 02/23/2016 Andrea Score Blood Edema Fundus Height Fundus Units Glucose Ketones Leukocytes Nitrite Labor Signs Protein Cervic Dilation Cervic Effacement Cervic Station 33 cm Type Weight in lbs Pre/Post Dialysis Refused 154.398850588882 BP Diastolic BP Location Tested BP Systolic BP Type 68 98 sitting Fetus Heart Rate Present A 156 Present Fetus Movement A Yes Comments Repeat c/s in 3 weeks, doing well, no issues Flowsheet Date 03/01/2016 Andrea Score Blood Edema Fundus Height Fundus Units Glucose Ketones Leukocytes Nitrite Labor Signs Protein Cervic Dilation Cervic Effacement Cervic Station 34 cm Type Weight in lbs Pre/Post Dialysis Refused 155.11875008576 BP Diastolic BP Location Tested BP Systolic BP Type 62 110 sitting Fetus Heart Rate Present A 142 Present Fetus Movement A Yes Comments Busy mom of 3, repeat c/s in 2 weeksdoing great Flowsheet Date 03/11/2016 Andrea Score Blood Edema Fundus Height Fundus Units Glucose Ketones Leukocytes Nitrite Labor Signs Protein Cervic Dilation Cervic Effacement Cervic Station 35 cm Type Weight in lbs Pre/Post Dialysis Refused 154.352048090474 BP Diastolic BP Location Tested BP Systolic BP Type 72 128 sitting Fetus Heart Rate Present A 141 Present Fetus Movement A Yes Comments doing well. c/s is Tuesday! Flowsheet Date 03/19/2016 Andrea Score Blood Edema Fundus Height Fundus Units Glucose Ketones Leukocytes Nitrite Labor Signs Protein Cervic Dilation Cervic Effacement Cervic Station Type Weight in lbs Pre/Post Dialysis Refused 141.018813127302 BP Diastolic BP Location Tested BP Systolic BP Type 66 112 sitting Fetus Heart Rate Present Fetus Movement Comments Menstrual History Last Menstrual Date Menses Monthly On Bcp Conception Prior Menses Frequency Hcg Plus Date Menarche Onset Age 0106/16/2015 Delivery Information Delivery Date Delivery Type Labor Anesthesia Weeks Gestation Incision Type Labor Labor Length Hrs Delivered By Post Complications Tubal Sterilization Discharge Date Comments 6 None [facility] [address] Low [address] e false Dr. Vizcarra 03/17/2016 Discharge Information Feeding Method Contraceptive Method Maternal HG B and HCT Levels Breast
--- OUTSIDE RECORDS SUMMARY | 2024-09-13 16:10 | XMS_ITS | Clinical Summary ---
Author Organization [facility] Address [address] [place] [address] Care Team Providers Care Ground Transportation Operator Name Role Phone Odalys Patino Primary Care Pr ovider Source Comments [facility],non-owned Affiliates and Associated Physician Practices is amultiple site organization consisting of ambulatory clinics and hospital sitesin [place], [place], [place] and [place]. This disclosure is being madepursuant to the Care Everywhere program and may not contain all information available regarding this patient. Last updated 18.[facility] Social History Tobacco Use Types Packs/Day Years Used Date Smoking Tobacco: Never Assessed Comments Unknown Sex and Gender Information Value Date Recorded Sex Assigned at Not on file Legal Sex Female 11:14 AM CDT Gender Identity Not on file Sexual Orientation Not on file Plan of Treatment Health Maintenance Due Date Last Done Comments LIPID TESTING 1981 MAMMOGRAM 1981 PAP SMEAR 1981 HIV SCREENING 01/29/1996 HEPATITIS C SCREENING 01/24/1999 DTAP/TDAP/TD VACCINES (1 - Tdap) 01/29/2000 HEPATITIS B VACCINE (1 of 3 - 19+ 3-dose series) 01/29/2000 COVID-19 VACCINE ( - 2023-2 5 season) 2024 DEPRESSION SCREENING 05/30/2024 INFLUENZA VACCINE (Season Ended) 2025 ZOSTER VACCINE (1 of 2) 2031 HIB VACCINE Aged Out No longer eligi ble based on patient's age to complete this topic HPV VACCINE Aged Out No longer eligi ble based on patient's age to complete this topic MENINGOCOCCAL (Group B) VACC INE SHARED DECISION-MAKING Aged Out No longer eligibl e based on patient's age to complete this topic MENINGOCOCCAL GROUPS A/C/Y/W VACCINE Aged Out No longer eligible b ased on patient's age to complete this topic PNEUMOCOCCAL VACCINE Aged Out No long er eligible based on patient's age to complete this topic Insurance Care Teams Ground Transportation Operator Relationship Specialty Start Date End Date Odalys Patino PA [address] [place] [address] PCP - General 07/30/21
--- OUTSIDE RECORDS SUMMARY | 2024-09-13 16:10 | XMS_ITS | Clinical Summary ---
Author Organization [facility] Address [address] [place] [address] Phone Care Team Providers Care Activity Director Name Role Phone Unavailable Primary Care Provider Unavailabl e Allergies No known active allergies Medications Vit-Fe Fumarate-FA ( VITAMIN PO) Take by mouth. Active [id number]-[id number]-[id number] in-Petrolatum (PREPARATION H RE) by Rectal route. Active HYDROcodone-acet aminophen (NORCO) 5-325 MG Tablet Take 1-2 Tabs by mouth every 4 hours as needed. 30 Tab 0 03/17/2016 Active ibuprofen (MOTRIN) 600 MG Tablet Take 1 Tab by mouth every 6 hours as needed. 30 Tab 3 03/17/2016 Active Immunizations Immunization Administration Dates Next Due Influenza Vaccine, Quadrivalent, PF 03/17/2016 TDAP Vaccine 03/17/2016 Family History Medical History Relation Name Comments High Cholesterol Father Heart Disease Mother High Cholesterol Mother Relation Name Status Comments Father Alive Mother Alive Social History Tobacco Use Types Packs/Day Years Used Date Smoking Tobacco: Never Alcohol Use Standard Drinks/Week Comments No 0 (1 standard drink = 0.6 oz pur e alcohol) Comments No Sex and Gender Information Value Date Recorded Sex Assigned at Not on file Legal Sex Female 3:27 PM CDT Gender Identity Not on file Sexual Orientation Not on file Last Filed Vital Signs Vital Sign Reading Time Taken Comments Blood Pressure 121/71 03/17/2016 3:00 PM CDT Pulse 76 03/17/2016 3:00 PM CDT Temperature 36 C (96.8 F) 03/17/2016 3:00 PM CDT Respiratory Rate 18 03/17/2016 3:00 PM CDT Oxygen Saturation 98% 03/17/2016 12:00 AM CDT Inhaled Oxygen Concentration - - Weight 69.9 kg (154 lb) 03/15/2016 5:56 AM CDT Height 162.6 cm (5' 4 ) 03/15/2016 5:56 AM CDT Body Mass Index 26.43 03/15/2016 5:56 AM CDT Plan of Treatment Health Maintenance Due Date Last Done Comments Hepatitis C Virus (HCV) Screening 1981 Hepatitis B Immunization (1 of 3 - 19+ 3-dose series) 01/29/2000 Pap Smear 2002 Cervical Cancer Screening (CCS) 2011 HPV/Cotest 2011 Discussion re Starting/Frequ ency of Mammograms 2021 Influenza Immunization (#1) 2024 03/17/2016 SARS-COV-2 Immunization (2023- season) 2024 Respiratory Syncytial Virus (RSV) Immunization (Adult) (1 - 1-dose 75+ series) 01/29/2056 DTaP/Tdap/Td Immunization Discontinued 03/17/2016 Meningococcal Immunization (ACWY) Aged Out No longer eligible based on patient's age to complete this topic Pneumococcal Immunization Combined Aged Out No longer eligible b ased on patient's age to complete this topic Rotavirus Immunization Aged Out No lo nger eligible based on patient's age to complete this topic Advance Directives * Full Code (Latest Code Status on File) Date Activated Date Inactivated Comments 03/15/2016 5:33 AM 03/17/2016 8:49 PM CPR-Full T reatment: FULL ARREST: Attempt Resuscitation/CPR wit intubation and mechanical ventilation. PRE-ARREST: Use entire range of life support measures to stabilize the patient.
== END 2024-09-13 16:08 | disposition home or self-care (01) ==
PROVIDERS: PCP Physician Assistant; Visit Provider Obstetrics & Gynecology
DX: Z12.31 Encounter for screening mammogram for malignant neoplasm of breast (principal); R92.8 Other abnormal and inconclusive findings on diagnostic imaging of breast
CPT/HCPCS: 77063; 77067

== ENCOUNTER 2024-09-24 10:40 | Outpatient (CLI) | payer BC, SELFPAY ==
--- NOTE | ~2024-09-24 | MMUS_ITS ---
EXAMINATION: MM diagnostic denny LT w demi, US breast LT limited HISTORY: Left breast asymmetry TECHNIQUE: Additional 3-D tomosynthesis images of the left breast were performed and synthetic 2-D im ages were generated. CAD analysis was submitted and interpreted. High resolution limited left breast ultrasound was performed. COMPARISON: 09/13/2024, 09/08/2023, 07/07/2022 BREAST PARENCHYMAL COMPOSITION:Dense: The breasts are extremely dense, which lowers the sensitivity o f mammography. FINDINGS: MAMMOGRAPHIC FINDINGS: Spot compression images demonstrate a persistent low-density circumscribed mass in the lower, inner a spect measuring 6 mm in diameter. ULTRASOUND: At the 9:00 position left breast, 3 cm from the nipple, there is a 9 x 10 x 5 mm circumscribed, wider than tall mass, hypoechoic. No posterior shadowing. This could reflect a cluster of cysts versus pos sibly solid mass. IMPRESSION: Probable benign 9 x 10 x 5 mm circumscribed mass at the 9:00 position left breast, as detailed above . 6 month follow-up ultrasound recommended to reassess. BI-RADS category 3, probably benign findings. Reviewed, dictated and finalized at location M. IMPRESSION: Probable benign 9 x 10 x 5 mm circumscribed mass at the 9:00 position left logan ast, as detailed above. 6 month follow-up ultrasound recommended to reassess. BI-RADS category 3, probably benign findings.
--- OUTSIDE RECORDS SUMMARY | 2024-09-24 12:32 | XMS_ITS | Clinical Summary ---
Author Organization [facility] Address [address] [place] [address] Phone Care Team Providers Care Artist Blacksmith Name Role Phone Unavailable Primary Care Provider Unavailabl e Allergies No known active allergies Medications Vit-Fe Fumarate-FA ( VITAMIN PO) Take by mouth. Active [id number] in-Petrolatum (PREPARATION H RE) by Rectal route. [...]
--- OUTSIDE RECORDS SUMMARY | 2024-09-24 12:32 | XMS_ITS | Clinical Summary ---
Author Organization [facility] Address [address] [place] [address] Care Team Providers Care Manager Of Case Name Role Phone Odalys Patino Primary Care Pr ovider Source Comments [facility],non-owned Affiliates and Associated Physician Practices is amultiple site organization consisting of ambulatory clinics and hospital sitesin [place], [place], [place] and [place]. This disclosure is being madepursuant to the Care Everywhere program and may not contain all information available regarding this patient. Last updated 18.[facility] Social History Tobacco Use Types Packs/Day Years [...] to complete this topic Insurance Care Teams Manager Of Case Relationship Specialty Start Date End Date Odalys Patino PA [address] [place] [address] PCP - General 07/30/21
--- OUTSIDE RECORDS SUMMARY | 2024-09-24 12:32 | XMS_ITS | Data Portability ---
Author Organization [facility], Main Office Address [address] [place] [address] Assessment Encounter Date Assessment Date Assessment LastModified by Organization Details LastModified Time 05/02/2023 05/02/2023 Pap smear UTD mammogram 08/2023 eye and dental UTD labs due [email or web address] Not available 05/02/2023 10:19:22 Plan of Treatment Reminders Order Date Submit Date Provider Last Modified By Organization Details Last Modified Time Details Appointments None recorded. Lab vitamin D, 25-hydrox y, total, serum 023 023 [facility], [address], [place], [address], 3 04:46:20 TSH + free T4, serum 023 023 [facility], [address], [place], [address], 3 04:46:15 lipid panel, serum 023 023 [facility], [address], [place], [address], 3 04:46:16 CBC w/ auto diff 023 023 [facility], [address], [place], [address], 3 04:46:21 CMP, serum or plasma 023 023 [facility], [address], [place], [address], 3 04:46:18 HbA1c (hemoglob in A1c), blood 023 023 JUAN [facility], [address], [place], [address], 3 04:46:19 Referral None recorded. Procedures None recorded. Surgeries None recorded. Imaging None recorded. Medication Orders None recorded. Patient TargetsNo targets recorded. Patient InstructionsNo instructions recorded. Reason for Referral None Reported. Results Created Date Observation Date Name Description Value Unit Range Abnormal Flag Note LastModifiedBy Organization Detail LastModifiedTime 04/06/20 21 04/07/2021 URINA LYSIS REFLE X color yellow yellow normal Not Available [facility] [address] [address] [place], [address], 04/07/2021 07:40:22 04/06/2004/07/2021 URINA LYSIS REFLE X appearance clear clear normal Not Available [facility] [address] [address] [place], [address], 04/07/2021 07:40:22 04/06/2004/07/2021 URINA LYSIS REFLE X specific gravity 1.022 1.001- 1.035 normal Not Available [facility] [address] [place], [address], 04/07/2021 07:40:22 04/06/20 21 04/07/2021 URINA LYSIS REFLE X pH 7.0 5.0-8. 0 normal Not Available [facility] [address] [address] [place], [address], 04/07/2021 07:40:22 04/06/20 21 04/07/2021 URINA LYSIS REFLE X glucose negati ve negati ve normal Not Available [facility] [address] [address] [place], [address], 04/07/2021 07:40:22 04/06/20 21 04/07/2021 URINA LYSIS REFLE X bilirubin negati ve negati ve normal Not Available [address], [address], 04/07/2021 07:40:22 04/06/20 21 04/07/2021 URINA LYSIS REFLE X ketones negati ve negati ve normal Not Available [address], [address], 04/07/2021 07:40:22 04/06/20 21 04/07/2021 URINA LYSIS REFLE X occult blood negati ve negati ve normal Not Available [address], [address], 04/07/2021 07:40:22 04/06/20 21 04/07/2021 URINA LYSIS REFLE X protein negati ve negati ve normal Not Available [address], [address], 04/07/2021 07:40:22 04/06/20 21 04/07/2021 URINA LYSIS REFLE X nitrite negati ve negati ve normal Not Available [address], [address], 04/07/2021 07:40:22 04/06/20 21 04/07/2021 URINA LYSIS REFLE X leukocyte esterase negati ve negati ve normal Not Available [address], [address], 04/07/2021 07:40:22 04/06/20 21 04/07/2021 URINA LYSIS REFLE X WBC 0-5 /hpf < or = 5 normal Not Available [address], [address], 04/07/2021 07:40:22 04/06/20 21 04/07/2021 URINA LYSIS REFLE X RBC 0-2 /hpf < or = 2 normal Not Available [address], [address], 04/07/2021 07:40:22 04/06/20 21 04/07/2021 URINA LYSIS REFLE X squamous epithelial cells 0-5 /hpf < or = 5 Not Available [address], [address], 04/07/2021 07:40:22 04/06/20 21 04/07/2021 URINA LYSIS REFLE X bacteria few /hpf none seen abnormal Not Available [address], [address], 04/07/2021 07:40:22 04/06/20 21 04/07/2021 URINA LYSIS REFLE X hyaline cast none seen /lpf none seen normal Not Available [address], [address], 04/07/2021 07:40:22 04/06/20 21 04/07/2021 URINA LYSIS REFLE X comments few mucous thread s Not Available [address], [address], 04/07/2021 07:40:22 04/06/20 21 04/07/2021 CBC (INCL UDES DIFF/ PLT) RDW 12.1 % 11.0-1 5.0 normal Not Available [address], [address], 04/07/2021 07:40:21 04/06/20 21 04/07/2021 CBC (INCL UDES DIFF/ PLT) platelet count 189 thous and/u L 140-40 0 normal Not Available [address], [address], 04/07/2021 07:40:21 04/06/20 21 04/07/2021 CBC (INCL UDES DIFF/ PLT) MPV 11.6 fL 7.5-12 .5 normal Not Available [address], [address], 04/07/2021 07:40:21 04/06/20 21 04/07/2021 CBC (INCL UDES DIFF/ PLT) absolute neutrophils 4136 cells /uL 1500-7 800 normal Not Available [address], [address], 04/07/2021 07:40:21 04/06/20 21 04/07/2021 CBC (INCL UDES DIFF/ PLT) absolute lymphocytes 1452 cells /uL 850-39 00 normal Not Available [address], [address], 04/07/2021 07:40:21 04/06/20 21 04/07/2021 CBC (INCL UDES DIFF/ PLT) absolute monocytes 464 cells /uL 200-95 0 normal Not Available [address], [address], 04/07/2021 07:40:21 04/06/20 21 04/07/2021 CBC (INCL UDES DIFF/ PLT) absolute eosinophils 31 cells /uL 15-500 normal Not Available [address], [address], 04/07/2021 07:40:21 04/06/20 21 04/07/2021 CBC (INCL UDES DIFF/ PLT) absolute basophils 18 cells /uL 0-200 normal Not Available [address], [address], 04/07/2021 07:40:21 04/06/20 21 04/07/2021 CBC (INCL UDES DIFF/ PLT) neutrophils 67.8 % normal Not Available [address], [address], 04/07/2021 07:40:21 04/06/20 21 04/07/2021 CBC (INCL UDES DIFF/ PLT) lymphocytes 23.8 % normal Not Available [address], [address], 04/07/2021 07:40:21 04/06/20 21 04/07/2021 CBC (INCL UDES DIFF/ PLT) monocytes 7.6 % normal Not Available [address], [address], 04/07/2021 07:40:21 04/06/20 21 04/07/2021 CBC (INCL UDES DIFF/ PLT) eosinophils 0.5 % normal Not Available [address], [address], 04/07/2021 07:40:21 04/06/20 21 04/07/2021 CBC (INCL UDES DIFF/ PLT) basophils 0.3 % normal Not Available [address], [address], 04/07/2021 07:40:21 04/06/20 21 04/07/2021 CBC (INCL UDES DIFF/ PLT) white blood cell count 6.1 thous and/u L 3.8-10 .8 normal Not Available [address], [address], 04/07/2021 07:40:21 04/06/20 21 04/07/2021 CBC (INCL UDES DIFF/ PLT) red blood cell count 4.11 abbie on/uL 3.80-5 .10 normal Not Available [address], [address], 04/07/2021 07:40:21 04/06/20 21 04/07/2021 CBC (INCL UDES DIFF/ PLT) hemoglobin 12.6 g/dL 11.7-1 5.5 normal Not Available [address], [address], 04/07/2021 07:40:21 04/06/20 21 04/07/2021 CBC (INCL UDES DIFF/ PLT) hematocrit 38.9 % 35.0-4 5.0 normal Not Available [address], [address], 04/07/2021 07:40:21 04/06/20 21 04/07/2021 CBC (INCL UDES DIFF/ PLT) MCV 94.6 fL 80.0-1 00.0 normal Not Available [address], [address], 04/07/2021 07:40:21 04/06/20 21 04/07/2021 CBC (INCL UDES DIFF/ PLT) MCH 30.7 pg 27.0-3 3.0 normal Not Available [address], [address], 04/07/2021 07:40:21 04/06/20 21 04/07/2021 CBC (INCL UDES DIFF/ PLT) MCHC 32.4 g/dL 32.0-3 6.0 normal Not Available [address], [address], 04/07/2021 07:40:21 04/06/20 21 04/07/2021 COMPR EHENS ATIF METAB OLIC PANEL glucose 87 mg/dL 65-99 normal Fasti ng refer ence inter narinder Not Available [address], [address], 04/07/2021 07:40:21 04/06/20 21 04/07/2021 COMPR EHENS ATIF METAB OLIC PANEL urea nitrogen (BUN) 17 mg/dL 7-25 normal Not Available [address], [address], 04/07/2021 07:40:21 04/06/20 21 04/07/2021 COMPR EHENS ATIF METAB OLIC PANEL creatinine 0.90 mg/dL 0.50-1 .10 normal Not Available [address], [address], 04/07/2021 07:40:21 04/06/20 21 04/07/2021 COMPR EHENS ATIF METAB OLIC PANEL eGFR non-afr. barbadian 80 mL/mi n/1.7 3m2 > or = 60 normal Not Available [address], [address], 04/07/2021 07:40:21 04/06/20 21 04/07/2021 COMPR EHENS ATIF METAB OLIC PANEL eGFR 93 mL/mi n/1.7 3m2 > or = 60 normal Not Available [address], [address], 04/07/2021 07:40:21 04/06/20 21 04/07/2021 COMPR EHENS ATIF METAB OLIC PANEL BUN/creatini ne ratio not applic able (calc ) 6-22 Not Available [address], [address], 04/07/2021 07:40:21 04/06/20 21 04/07/2021 COMPR EHENS ATIF METAB OLIC PANEL sodium 141 mmol/ L 135-14 6 normal Not Available [address], [address], 04/07/2021 07:40:21 04/06/20 21 04/07/2021 COMPR EHENS ATIF METAB OLIC PANEL potassium 4.6 mmol/ L 3.5-5. 3 normal Not Available [address], [address], 04/07/2021 07:40:21 04/06/20 21 04/07/2021 COMPR EHENS ATIF METAB OLIC PANEL chloride 106 mmol/ L 98-110 normal Not Available [address], [address], 04/07/2021 07:40:21 04/06/20 21 04/07/2021 COMPR EHENS ATIF METAB OLIC PANEL carbon dioxide 29 mmol/ L 20-32 normal Not Available [address], [address], 04/07/2021 07:40:21 04/06/20 21 04/07/2021 COMPR EHENS ATIF METAB OLIC PANEL calcium 9.5 mg/dL 8.6-10 .2 normal Not Available [address], [address], 04/07/2021 07:40:21 04/06/20 21 04/07/2021 COMPR EHENS ATIF METAB OLIC PANEL protein, total 6.9 g/dL 6.1-8. 1 normal Not Available [address], [address], 04/07/2021 07:40:21 04/06/20 21 04/07/2021 COMPR EHENS ATIF METAB OLIC PANEL albumin 4.6 g/dL 3.6-5. 1 normal Not Available [address], [address], 04/07/2021 07:40:21 04/06/20 21 04/07/2021 COMPR EHENS ATIF METAB OLIC PANEL globulin 2.3 g/dL_ (calc ) 1.9-3. 7 normal Not Available [address], [address], 04/07/2021 07:40:21 04/06/20 21 04/07/2021 COMPR EHENS ATIF METAB OLIC PANEL albumin/glob ulin ratio 2.0 (calc ) 1.0-2. 5 normal Not Available [address], [address], 04/07/2021 07:40:21 04/06/20 21 04/07/2021 COMPR EHENS ATIF METAB OLIC PANEL bilirubin, total 0.8 mg/dL 0.2-1. 2 normal Not Available [address], [address], 04/07/2021 07:40:21 04/06/20 21 04/07/2021 COMPR EHENS ATIF METAB OLIC PANEL alkaline phosphatase 35 U/L 31-125 normal Not Available [address], [address], 04/07/2021 07:40:21 04/06/20 21 04/07/2021 COMPR EHENS ATIF METAB OLIC PANEL AST 12 U/L 10-30 normal Not Available [address], [address], 04/07/2021 07:40:21 04/06/20 21 04/07/2021 COMPR EHENS TAIF METAB OLIC PANEL ALT 9 U/L 6-29 normal Not Available [address], [address], 04/07/2021 07:40:21 04/06/20 21 04/07/2021 LIPID PANEL WITH RATIO S cholesterol, total 147 mg/dL <200 normal Not Available [address], [address], 04/07/2021 07:40:20 04/06/20 21 04/07/2021 LIPID PANEL WITH RATIO S HDL cholesterol 45 mg/dL > or = 50 low Not Available [address], [address], 04/07/2021 07:40:20 04/06/20 21 04/07/2021 LIPID PANEL WITH RATIO S triglyceride s 70 mg/dL <150 normal Not Available [address], [address], 04/07/2021 07:40:20 04/06/20 21 04/07/2021 LIPID PANEL WITH RATIO S LDL-choleste rol 86 mg/dL _(terri c) normal Refer ence range : <100 Teetee able range <100 mg/dL for prima ry preve ntion ; <70 mg/dL for patie nts with CHD or diabe tic patie nts with > or = 2 CHD risk facto rs. LDL-C is now calcu lated using the Darline n-Hop kins calcu maylin n, which is a valid ated novel metho d provi ding ventura r accur acy than the Fried carson equat ion in the estim ation of LDL-C . Darline solano SS et al. TED. 2013; 310(1 9): 2061- 2068 (http ://ed ucati on.Qu phillipEnzymeRx. Heroes2u/f aq/FA Q164) Not Available [facility] [address] [place], [address], 04/07/2021 07:40:20 04/06/20 21 04/07/2021 LIPID PANEL WITH RATIO S chol/HDLC ratio 3.3 (calc ) <5.0 normal Not Available [facility] [address] [place], [address], 04/07/2021 07:40:20 04/06/20 21 04/07/2021 LIPID PANEL WITH RATIO S LDL/HDL ratio 1.9 (calc ) Below avera ge Risk: <2.34 Bohannon ge Risk: 2.35- 4.12 Moder ate Risk: 4.13- 5.56 High Risk: >5.57 Not Available [facility] [address] [facility] [place], [address], 04/07/2021 07:40:20 04/06/20 21 04/07/2021 LIPID PANEL WITH RATIO S non HDL cholesterol 102 mg/dL _(terri c) <130 normal For patie nts with diabe jay plus 1 major ASCVD risk facto r, treat ing to a non-H DL-C goal of <100 mg/dL (LDL- C of <70 mg/dL ) is consi joselyn kenyono n. Not Available [address], [address], 04/07/2021 07:40:20 04/06/20 21 04/07/2021 TSH+F REE T4 TSH 1.58 mIU/L normal Refer ence Range > or = 20 Years 0.40- 4.50 Pregn nayely Range s First trime ster 0.26- 2.66 Secon d trime ster 0.55- 2.73 Third trime ster 0.43- 2.91 Not Available [address], [address], 04/07/2021 07:40:20 04/06/20 21 04/07/2021 TSH+F REE T4 T4, free 1.0 NG/dL 0.8-1. 8 normal Not Available [address], [address], 04/07/2021 07:40:20 05/09/20 23 05/10/2023 TSH+F REE T4 TSH 2.35 mIU/L normal Refer ence Range > or = 20 Years 0.40- 4.50 Pregn nayely Range s First trime ster 0.26- 2.66 Secon d trime ster 0.55- 2.73 Third trime ster 0.43- 2.91 Not Available [address], [address], 05/10/2023 04:46:15 05/09/20 23 05/10/2023 TSH+F REE T4 T4, free 0.9 NG/dL 0.8-1. 8 normal Not Available [address], [address], 05/10/2023 04:46:15 05/09/20 23 05/10/2023 LIPID PANEL WITH RATIO S cholesterol, total 174 mg/dL <200 normal Not Available [facility] [address] [place], [address], 05/10/2023 04:46:16 05/09/20 23 05/10/2023 LIPID PANEL WITH RATIO S HDL cholesterol 44 mg/dL > or = 50 low Not Available [facility] [address] [place], [address], 05/10/2023 04:46:16 05/09/20 23 05/10/2023 LIPID PANEL WITH RATIO S triglyceride s 89 mg/dL <150 normal Not Available [facility] [address] [address] [place], [address], 05/10/2023 04:46:16 05/09/20 23 05/10/2023 LIPID PANEL WITH RATIO S LDL-choleste rol 111 mg/dL _(terri c) high Refer ence range : <100 Teetee able range <100 mg/dL for prima ry preve ntion ; <70 mg/dL for patie nts with CHD or diabe tic patie nts with > or = 2 CHD risk facto rs. LDL-C is now calcu lated using the Darline solano-Hop kins kimberlyu maylin n, which is a valid ated novel aury reevesy than the Fried carson equat ion in the estim ation of LDL-C . Darline solano SS et al. TED. 2013; 310(1 9): 2061- 2068 (http ://ed ucati on.Qu Rhett rosas tics. com/f aq/FA Q164) Not Available [facility] [address] [address], [place], [address], 05/10/2023 04:46:16 05/09/20 23 05/10/2023 LIPID PANEL WITH RATIO S chol/HDLC ratio 4.0 (calc ) <5.0 normal Not Available [facility] [address] [place], [address], 05/10/2023 04:46:16 05/09/20 23 05/10/2023 LIPID PANEL WITH RATIO S LDL/HDL ratio 2.5 (calc ) Below avera ge Risk: <2.34 Bohannon ge Risk: 2.35- 4.12 Moder ate Risk: 4.13- 5.56 High Risk: >5.57 Not Available [address] [address] [place], [address], 05/10/2023 04:46:16 05/09/20 23 05/10/2023 LIPID PANEL WITH RATIO S non HDL cholesterol 130 mg/dL _(terri c) <130 high For patie nts with diabe jay plus 1 major ASCVD risk facto r, treat ing to a non-H DL-C goal of <100 mg/dL (LDL- C of <70 mg/dL ) is felix gann c optio n. Not Available [address] [address] [place], [address], 05/10/2023 04:46:16 05/09/20 23 05/10/2023 COMPR EHENS ATIF METAB OLIC PANEL glucose 87 mg/dL 65-99 normal Fasti ng refer ence inter narinder Not Available [address] [address] [place], [address], 05/10/2023 04:46:17 05/09/20 23 05/10/2023 COMPR EHENS ATIF METAB OLIC PANEL urea nitrogen (BUN) 20 mg/dL 7-25 normal Not Available [address] [place], [address], 05/10/2023 04:46:17 05/09/20 23 05/10/2023 COMPR EHENS ATIF METAB OLIC PANEL creatinine 0.79 mg/dL 0.50-0 .99 normal Not Available [address] [address] [place], [address], 05/10/2023 04:46:17 05/09/20 23 05/10/2023 COMPR EHENS ATIF METAB OLIC PANEL eGFR 96 mL/mi n/1.7 3m2 > or = 60 normal Not Available [address] [address] [place], [address], 05/10/2023 04:46:17 05/09/20 23 05/10/2023 COMPR EHENS ATIF METAB OLIC PANEL BUN/creatini ne ratio SEE NOTE: (calc ) 6-22 Not Repor abril: BUN and Creat inine are withi n refer ence range . Not Available [address] [address] [place], [address], 05/10/2023 04:46:17 05/09/20 23 05/10/2023 COMPR EHENS ATIF METAB OLIC PANEL sodium 139 mmol/ L 135-14 6 normal Not Available [address] [address] [address] , [place], [address], 05/10/2023 04:46:17 05/09/20 23 05/10/2023 COMPR EHENS ATIF METAB OLIC PANEL potassium 4.2 mmol/ L 3.5-5. 3 normal Not Available [address] [address] [place], [address], 05/10/2023 04:46:17 05/09/20 23 05/10/2023 COMPR EHENS ATIF METAB OLIC PANEL chloride 104 mmol/ L 98-110 normal Not Available [address] [address] [place], [address], 05/10/2023 04:46:17 05/09/20 23 05/10/2023 COMPR EHENS ATIF METAB OLIC PANEL carbon dioxide 29 mmol/ L 20-32 normal Not Available [address] [address] [place], [address], 05/10/2023 04:46:17 05/09/20 23 05/10/2023 COMPR EHENS ATIF METAB OLIC PANEL calcium 9.2 mg/dL 8.6-10 .2 normal Not Available [facility] [address] [address] [place], [address], 05/10/2023 04:46:17 05/09/20 23 05/10/2023 COMPR EHENS ATIF METAB OLIC PANEL protein, total 6.4 g/dL 6.1-8. 1 normal Not Available [address], [address], 05/10/2023 04:46:17 05/09/20 23 05/10/2023 COMPR EHENS ATIF METAB OLIC PANEL albumin 4.4 g/dL 3.6-5. 1 normal Not Available [address], [address], 05/10/2023 04:46:17 05/09/20 23 05/10/2023 COMPR EHENS ATIF METAB OLIC PANEL globulin 2.0 g/dL_ (calc ) 1.9-3. 7 normal Not Available [address], [address], 05/10/2023 04:46:17 05/09/20 23 05/10/2023 COMPR EHENS ATIF METAB OLIC PANEL albumin/glob ulin ratio 2.2 (calc ) 1.0-2. 5 normal Not Available [address], [address], 05/10/2023 04:46:17 05/09/20 23 05/10/2023 COMPR EHENS ATIF METAB OLIC PANEL bilirubin, total 0.7 mg/dL 0.2-1. 2 normal Not Available [address] [address] [place], [address], 05/10/2023 04:46:17 05/09/20 23 05/10/2023 COMPR EHENS ATIF METAB OLIC PANEL alkaline phosphatase 33 U/L 31-125 normal Not Available [address] [address] [place], [address], 05/10/2023 04:46:17 05/09/20 23 05/10/2023 COMPR EHENS ATIF METAB OLIC PANEL AST 16 U/L 10-30 normal Not Available [facility] [address] [place], [address], 05/10/2023 04:46:17 05/09/20 23 05/10/2023 COMPR EHENS ATIF METAB OLIC PANEL ALT 12 U/L 6-29 normal Not Available [facility] [address] [place], [address], 05/10/2023 04:46:17 05/09/20 23 05/10/2023 HEMOG LOBIN A1C hemoglobin A1C 5.0 %_of_ total _HGB <5.7 normal For the purpo se of scree daphne for the prese nce of diabe jay: <5.7% Consi stent with the absen ce of diabe jay 5.7-6 .4% Consi stent with incre ased risk for diabe jay (pred iabet es) > or =6.5% Consi stent with diabe jay This assay resul t is consi stent with a decre ased risk of diabe jay. Curre ntly, no conse nsus exist s ro wright use of hemog lobin A1c for diagn osis of diabe jay in child pierre. Accor ding to Ameri can Diabe jay Assoc iatio n (ADA) guide lines , hemog lobin A1c <7.0% repre sents optim al contr ol in non-p regna nt diabe tic patie nts. Diffe rent metri cs may apply to speci fic patie nt popul ation s. Stand ards of Medic al Care in Diabe jay(A DA). Not Available [facility] [address] [place], [address], 05/10/2023 04:46:19 05/09/20 23 05/10/2023 VITAM IN D,25- OH,TO BERKLEY,I A vitamin D,25-oh,tota l,ia 57 NG/mL 30-100 normal Vitam in D Statu s 25-OH Vitam in D: Defic iency : <20 ng/mL Insuf ficie ncy: 20 - 29 ng/mL Optim al: > or = 30 ng/mL For 25-OH Vitam in D testi ng on patie nts on D2-brown pplem entat ion and patie nts for whom quant itati on of D2 and D3 fract ions is requi red, the [facility] e[facility](TM ) 25-OH VIT D, (D2,D 3), LC/MS /MS is recom willa d: order code 64008 (bernard ents >2yrs ). See Note 1 Note 1 For addit ional infor janel lara e refer to http: //[facility] abdi Broderick gnjayden ics.c om/fa q/FAQ 199 (This link is being provi ded for infor julieta michelle/ vahid brower purpo ses only. ) Not Available [address], [address], 05/10/2023 04:46:20 05/09/20 23 05/10/2023 CBC (INCL UDES DIFF/ PLT) white blood cell count 4.5 thous and/u L 3.8-10 .8 normal Not Available [address], [address], 05/10/2023 04:46:21 05/09/20 23 05/10/2023 CBC (INCL UDES DIFF/ PLT) red blood cell count 3.91 abbie on/uL 3.80-5 .10 normal Not Available [address] [place], [address], 05/10/2023 04:46:21 05/09/20 23 05/10/2023 CBC (INCL UDES DIFF/ PLT) hemoglobin 12.2 g/dL 11.7-1 5.5 normal Not Available [address] [place], [address], 05/10/2023 04:46:21 05/09/20 23 05/10/2023 CBC (INCL UDES DIFF/ PLT) hematocrit 36.8 % 35.0-4 5.0 normal Not Available [address], [address], 05/10/2023 04:46:21 05/09/20 23 05/10/2023 CBC (INCL UDES DIFF/ PLT) MCV 94.1 fL 80.0-1 00.0 normal Not Available [address], [address], 05/10/2023 04:46:21 05/09/20 23 05/10/2023 CBC (INCL UDES DIFF/ PLT) MCH 31.2 pg 27.0-3 3.0 normal Not Available [address], [address], 05/10/2023 04:46:21 05/09/20 23 05/10/2023 CBC (INCL UDES DIFF/ PLT) MCHC 33.2 g/dL 32.0-3 6.0 normal Not Available [address], [address], 05/10/2023 04:46:21 05/09/20 23 05/10/2023 CBC (INCL UDES DIFF/ PLT) RDW 12.5 % 11.0-1 5.0 normal Not Available [address], [address], 05/10/2023 04:46:21 05/09/20 23 05/10/2023 CBC (INCL UDES DIFF/ PLT) platelet count 185 thous and/u L 140-40 0 normal Not Available [address], [address], 05/10/2023 04:46:21 05/09/20 23 05/10/2023 CBC (INCL UDES DIFF/ PLT) MPV 11.3 fL 7.5-12 .5 normal Not Available [address], [address], 05/10/2023 04:46:21 05/09/20 23 05/10/2023 CBC (INCL UDES DIFF/ PLT) absolute neutrophils 2741 cells /uL 1500-7 800 normal Not Available [address], [address], 05/10/2023 04:46:21 05/09/20 23 05/10/2023 CBC (INCL UDES DIFF/ PLT) absolute lymphocytes 1292 cells /uL 850-39 00 normal Not Available [address], [address], 05/10/2023 04:46:21 05/09/20 23 05/10/2023 CBC (INCL UDES DIFF/ PLT) absolute monocytes 369 cells /uL 200-95 0 normal Not Available [address], [address], 05/10/2023 04:46:21 05/09/20 23 05/10/2023 CBC (INCL UDES DIFF/ PLT) absolute eosinophils 68 cells /uL 15-500 normal Not Available [address], [address], 05/10/2023 04:46:21 05/09/20 23 05/10/2023 CBC (INCL UDES DIFF/ PLT) absolute basophils 32 cells /uL 0-200 normal Not Available [address], [address], 05/10/2023 04:46:21 05/09/20 23 05/10/2023 CBC (INCL UDES DIFF/ PLT) neutrophils 60.9 % normal Not Available [address], [address], 05/10/2023 04:46:21 05/09/20 23 05/10/2023 CBC (INCL UDES DIFF/ PLT) lymphocytes 28.7 % normal Not Available [facility] [address] [place], [address], 05/10/2023 04:46:21 05/09/20 23 05/10/2023 CBC (INCL UDES DIFF/ PLT) monocytes 8.2 % normal Not Available [address] [address] [place], [address], 05/10/2023 04:46:21 05/09/20 23 05/10/2023 CBC (INCL UDES DIFF/ PLT) eosinophils 1.5 % normal Not Available [facility] [address] [address] [place], [address], 05/10/2023 04:46:21 05/09/20 23 05/10/2023 CBC (INCL UDES DIFF/ PLT) basophils 0.7 % normal Not Available [address] [address] [place], [address], 05/10/2023 04:46:21 06/09/19 22 06/01/2021 MAMMO , scree daphne, digit al, bilat eral No observ ation record ed. MIGRATION. [facility] (Mammography) [address], [place], [address], 07/28/2022 22:07:06 06/25/19 22 06/24/2021 MAMMO , diagn ostic , digit al, bilat eral No observ ation record ed. MIGRATION. [facility] (Mammography) [address], [place], [address], 07/28/2022 22:07:06 11/06/19 22 11/05/2021 XR, thora cic spine No observ ation record ed. MIGRATION. [facility] [address] [place] [address], [place], [address], 07/28/2022 22:07:06 12/23/19 22 12/22/2021 US, jese hicks, bilat eral No observ ation record ed. [id number] [facility] [address], [place], [address], 07/28/2022 22:07:06 05/26/20 22 05/25/2022 MRI, thora cic spine , w/o contr ast No observ ation record ed. [id number] [facility] [address] [facility], [place], [address], 07/28/2022 22:07:06 06/23/19 24 07/07/2022 MAMMO , scree daphne, digit al, bilat eral No observ ation record ed. [id number] [facility] [facility] [address], [place], [address], 06/23/2023 12:50:39 Result Notes None recorded. Problems Name Problem SNOMED Code Status Onset Date Resolution Date Notes Provider Name and Address Organization Details Recorded Time Chronic thoracic back pain 9324917254415 03 Active 2021 Not Available [facility] 3 22:05:48 Scoliosis of thoracic spine 415850880 Active 2022 Not Available [facility] 3 22:05:48 Cyst of scalp 848673958 Active 2021 Not Available [facility] 3 22:05:48 Vitamin D deficiency 78497395 Active 2021 Not Available [facility] 3 22:05:48 Thoracic spondylosi s 687685536 Active 2021 Not Available [facility] 3 22:05:48 Thoracic radiculopa thy 37768408 Active 2021 Not Available [facility] 3 22:05:48 Dextroscol iosis 4721743412052 Active 2021 Not Available [facility] 3 22:05:49 Streptococ terri sore throat 02719774 Active 2021 Not Available [facility] 3 22:05:49 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 Procedures Surgical History Date Name Laterality Status Provider Name and Address Organization Details Recorded Time completed Not Available [facility] 0 07/28/2022 22:05:17 removal of sebaceous cyst completed Not Available [facility] 07/28/2022 22:05:17 completed Not Available [facility] 0 07/28/2022 22:05:17 Dilation and curettage completed Not Available [facility] 07/28/2022 22:05:17 completed Not Available [facility] 0 07/28/2022 22:05:17 Imaging Results Imaging Date Name Status LastModified by Organiz ation Details LastModified Time 05/25/2022 MRI, thoracic spine, w/o contrast completed [id number] [address] [place] [address] [address] [facility], [place], [address], 07/28/2022 22:07:06 06/01/2021 MAMMO, screening, digital, bilateral completed MIGRATION.[id number] [address] [place] [address] (Mammography) [address], [place], [address], 07/28/2022 22:07:06 06/24/2021 MAMMO, diagnostic, digital, bilateral completed MIGRATION.[id number] [address] [place] [address] (Mammography) [address], [place], [address], 07/28/2022 22:07:06 12/22/2021 US, breast, bilateral completed MIGRATION.[id number] [address] [place] [address], [place], [address], 07/28/2022 22:07:06 11/05/2021 XR, thoracic spine completed MIGRATION.[id number] [address] [place] [address] [address] [place] [address], [place], [address], 07/28/2022 22:07:06 07/07/2022 MAMMO, screening, digital, bilateral [email or web address] [address], [place], [address], 06/23/2023 12:50:39 Procedure Notes None recorded. Medical Equipment None Reported. Allergies No known drug allergies Medications Name Sig Start Date Stop Date Status Note LastModified by Organization Details LastModified Time azithromyci n 250 mg tablet TAKE 2 TABLETS (500 MG) BY ORAL ROUTE ONCE DAILY FOR 1 DAY THEN 1 TABLET (250 MG) BY ORAL ROUTE ONCE DAILY FOR 4 DAYS 06/03 completed Not Available Not Available Not Available permethrin 5 % topical cream 01/22 completed Not Available Not Available Not Available ergocalcife rol (vitamin D2) 1,250 mcg (50,000 unit) capsule TAKE 1 CAPSULE BY MOUTH EVERY WEEK 2023 active Not Available Not Available Not Avai lable escitalopra m 5 mg tablet TK 1 T PO QD IN THE FRANSISCA 04/01 completed Not Available Not Available Not Available tretinoin 0.05 % topical gel APPLY A THIN LAYER TO FOREHEAD HS PRN 04/01 completed Not Available Not Available Not Available ID NOW COVID-19 Test Kit DIRECTED 04/01 completed Not Available Not Available Not Available Vitals Date Recorded Body mass index (BMI) Body height Oxygen saturation Oxygen saturation in Arterial blood by Pulse oximetry Heart rate Body temperature Body weight Systolic blood pressure Diastolic blood pressure Provider Name and Address Organization Details Last Updated DateTime 1 23.7 kg/m2 160.02 cm 98 % 98 % 60 /min 98 [degF] 97895.9 4 g 110 mm[Hg] 70 mm[Hg] Not Available [facility] 3 22:05:32 Date Recorded Body mass index (BMI) Body height Oxygen saturation Oxygen saturation in Arterial blood by Pulse oximetry Heart rate Respiratory rate Body temperature Body weight Systolic blood pressure Diastolic blood pressure Provider Name and Address Organization Details Last Updated DateTime 2 24.5 kg/m2 160.02 cm 98 % 98 % 80 /min 16 /min 97.2 [degF] 21819.4 7 g 112 mm[Hg] 68 mm[Hg] Not Available [facility] 3 22:05:32 Date Recorded Body mass index (BMI) Body height Oxygen saturation Oxygen saturation in Arterial blood by Pulse oximetry Heart rate Body temperature Body weight Systolic blood pressure Diastolic blood pressure Provider Name and Address Organization Details Last Updated DateTime 2 25 kg/m2 160.02 cm 99 % 99 % 78 /min 97.9 [degF] 89645.5 2 g 118 mm[Hg] 70 mm[Hg] Not Available [facility] 3 22:05:32 Date Recorded Body mass index (BMI) Body height Oxygen saturation Oxygen saturation in Arterial blood by Pulse oximetry Heart rate Respiratory rate Body temperature Body weight Systolic blood pressure Diastolic blood pressure Provider Name and Address Organization Details Last Updated DateTime 3 24.5 kg/m2 160.02 cm 97 % 97 % 96 /min 16 /min 97.8 [degF] 55431.5 4 g 120 mm[Hg] 72 mm[Hg] Not Available [facility] 3 22:05:32 Date Recorded Body height Body temperature Body mass index (BMI) Body weight Respiratory rate Oxygen saturation Oxygen saturation in Arterial blood by Pulse oximetry Heart rate Systolic blood pressure Diastolic blood pressure Provider Name and Address Organization Details Last Updated DateTime 3 160.02 cm 97.3 [degF] 24.1 kg/m2 89619.5 6 g 16 /min 98 % 98 % 79 /min 118 mm[Hg] 72 mm[Hg] RICHARD Mortensen [place] - [facility] [employer] [facility] 3 09:57:03 Social History Question Answer Notes LastModified by Organizat ion Details LastModified Time Tobacco Smoking Status Never Smoker Not Available [facility] 07/28/2022 22:05:06 Do You Have An Advance Directive? No MIGRATION.[id number] Information not available 07/28/2022 What Is Your Level Of Alcohol Consumption? None MIGRATION.107348 1998 Information not available 07/28/2022 If You Are , What Was Your Level Of Alcohol Consumption Prior To ? None MIGRATION.321526 2118 Information not available 07/28/2022 Do You Wear A Helmet When Biking? No MIGRATION.224084 4843 Information not available 07/28/2022 What Is Your Level Of Caffeine Consumption? None MIGRATION.729360 6206 Information not available 07/28/2022 In The 14 Days Before Symptom Onset, Have You Had Close Contact With A Laboratory-confir med COVID-19 While That Case Was Ill? No MIGRATION.929502 2898 Information not available 07/28/2022 In The 14 Days Before Symptom Onset, Have You Had Close Contact With A Person Who Is Under Investigation For COVID-19 While That Person Was Ill? No MIGRATION.690893 2111 Information not available 07/28/2022 Are You Currently Employed? Yes [email or web address] Information not available 04/29/2023 What Type Of Diet Are You Following? REGULAR MIGRATION.450364 1248 Information not available 07/28/2022 What Is The Highest Grade Or Level Of School You Have Completed Or The Highest Degree You Have Received? [id number] MIGRATION.592247 0898 Information not available 07/28/2022 What Is Your Occupation? [employer] MIGRATION.688966 6061 Information not available 07/28/2022 Have There Been Any Changes To Your Family Or Social Situation? No MIGRATION.365647 5586 Information not available 07/28/2022 Are There Any Guns Present In Your Home? No MIGRATION.178379 0378 Information not available 07/28/2022 Do You Use Insect Repellent Routinely? No MIGRATION.038799 6106 Information not available 07/28/2022 Do You Have A Medical Power Of Leasing Professional? No MIGRATION.491772 1507 Information not available 07/28/2022 What Is Your Relationship Status? MIGRATION.519266 9773 Information not available 07/28/2022 Do You Use Your Seat Belt Or Car Seat Routinely? Yes MIGRATION.349959 7118 Information not available 07/28/2022 Do You Have Smoke And Carbon Monoxide Detectors In Your Home? Yes MIGRATION.936042 7677 Information not available 07/28/2022 Are You Passively Exposed To Smoke? No MIGRATION.163373 0330 Information not available 07/28/2022 Are There Any Smokers In Your House? No MIGRATION.786872 3518 Information not available 07/28/2022 Do You Feel Stressed (tense, Restless, Nervous, Or Anxious, Or Unable To Sleep At Night)? [id number] MIGRATION.106547 4185 Information not available 07/28/2022 Do You Use Sunscreen Routinely? No MIGRATION.411291 0620 Information not available 07/28/2022 Has Tobacco Cessation Counseling Been Provided? No MIGRATION.413966 0845 Information not available 07/28/2022 Have You Recently Traveled Abroad? No MIGRATION.223914 9140 Information not available 07/28/2022 Do You Have Any Dietary Restrictions? No MIGRATION.486035 7451 Information not available 07/28/2022 Sex: Female Functional Status Question Answer Note LastModified by Organizat ion Details LastModified Time What is your exercise level? Occasional MIGRATION.[id number] 26 Information not available 07/28/2022 Mental Status None recorded. Family History Relationship Description Onset Age of this Age Resolved Age Notes LastModified by Organization Details LastModified Time Father Asthma MIGRATION.[id number] Not available 07/28/2022 22:05:18 Father Gout [email or web address] Not available 05/02/2023 09:48:59 Father Arthritis [email or web address] Not availa ble 05/02/2023 09:48:59 Father Hyperlipidem ia [email or web address] Not available 05/02 09:48:59 Father Benign neoplasm of cerebral meninges [email or web address] Not available 05/02 09:48:59 Father Disorder of smell [email or web address] Not available 05/02 09:48:59 Father [place]'s syndrome [email or web address] Not available 05/02 09:48:59 Father Alcohol dependence [email or web address] Not available 08/2022 09:48:59 Mother Coronary arterioscler osis Not available 05/02 09:48:59 Mother Restless legs [email or web address] Not available 05/02 09:48:59 Mother Hypertensive disorder MIGRATION.604 [id number] Not available 07/28/2022 22:05:18 Sister Sleep apnea Not avai lable 05/02/2023 09:48:59 Sister Fibromyalgia [email or web address] Not sammi ilable 05/02/2023 09:48:59 Sister Multiple nodules of lung [email or web address] Not available 05/02 09:48:59 Sister Chronic obstructive pulmonary disease [email or web address] Not available 05/02 09:48:59 Sister Escoto syndrome Not available 05/02 09:48:59 Sister Hypertensive disorder MIGRATION.488 [id number] Not available 07/28/2022 22:05:18 Paternal Aunt Fibromyalgia [email or web address] Not available 05/02/2023 09:48:59 Paternal Grandmother Malignant tumor of breast [id number] Not available 05/02 09:48:59 Paternal Grandmother Renal failure syndrome [email or web address] Not available 05/02 09:48:59 Paternal Grandfather Malignant lymphoma [email or web address] Not available 05/02 09:48:59 Maternal Grandfather [place] [employer] is [email or web address] Not available 05/02 09:48:59 Paternal Uncle Heart disease MIGRATION.497 [id number] Not available 07/28/2022 22:05:19 Brother Gout Not availabl e 05/02/2023 09:48:59 Brother Sleep apnea Not sammi ilable 05/02/2023 09:48:59 Brother Non-alcoholi c fatty liver [email or web address] Not available 05/02 09:48:59 Brother Arthritis [email or web address] Not avail able 05/02/2023 09:49:00 Medical History Condition Response EYE PROBLEMS Y Gynecological History Statement/Question Response Menses Monthly Y Abnormal Pap N Date of Last Pap 06/30/2015 Current Control Method None Sexually Active? Y Obstetrics History GPAL:G 4 P 0 0 1 4 Type Value Multiple Births 1 Spontaneous 1 Living 4 Total 4 Immunizations Vaccine Type Date Status Note Provider Nam e and Address Organization Details Recorded Time COVID-19, mRNA, LNP-S, PF, 100 mcg/0.5mL dose or 50 mcg/0.25mL dose 07/11/2020 completed Not Available [facility] 22:06:59 Past Encounters Encounter ID Performer Location Encounter Start Date Encounter Closed Date Diagnosis/Indication Diagnosis SNOMED-CT Code Diagnosis ICD10 Code Diagnosis Note [id number] [facility] [address] [place] [address] 04/01/2021 00:00:00 04/26/2021 18:26:10 [id number] [facility] [place] [address] [place] [address] 11/05/2021 00:00:00 11/05/2021 15:31:11 [id number] [facility] [place] [address] [place] [address] 04/30/2022 00:00:00 04/30/2022 10:15:27 [id number] [facility] [place] [address] [facility] [place] [address] 06/04/2022 00:00:00 06/27/2022 21:22:23 [id number] GABBIE Elias [facility] [place] [address] [facility] [address] [facility] [place] [address] 05/02/2023 09:48:51 05/02/2023 10:19:22 Adult health examination 774833269 Z00.00 well exam completed. Cholesterol screening 27 1923190 Z13.220 fasting labs ordered Diabetes m ellitus screening 810393202 Z13.1 Scoliosis of thoracic spine 998475113 M41.34 Vitamin D deficiency 347 75551 E55.9 Thyroid di sorder screening 071837590 Z13.29 Health Concerns Section Related Observation LastModified by Organization Detai ls LastModified Time None Recorded Concern Status LastModified by Organization Details LastModified Time None Recorded Advance Directives Directive N: Payers Encounter Date Sequence Insurance Name Policy Number Policy Broderick Covered Member ID Broderick Member ID Guarantor Name 05/02/2023 1 [facility]: (PPO) [id number] Daryl Luis Fernando [id number] Michelle Gould Notes Date Note Type Note Provider Name and Address Organization Details Recorded Time 04/01/2021 text/html Generic HPI TemplateReported bypatient.Notes:Pt is here today for her annual wellness exam, doing fine, no complaints Not Available [facility] 04/26/2021 18:26:10 11/05/2021 text/html Back Pain - GeneralReported bypatient.Location:[place]; Pain radiates to ribs. with muscle spasms Quality:aching;crampi ng Severity:improving Duration:constant Timing:better Alleviating Factors:ice Aggravating Factors:twisting Associated Symptoms:no fever; no weak limbs; no tingling; no numbness of the legs/feet; no incontinence; no shortness of breath; last week felt nauseous in the mornings.Notes:pt has been seeing chiropractors for years and more recently very often. She has had back pain in this region since she was a teenager. No hx of trauma or surgery. Has wax and waned over the years but constant now for several months. 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 Nsaids no help. Stretching no help. Not Available [employer] 11/05/2021 15:31:11 04/30/2022 text/html Generic HPI TemplateReported bypatient.Notes:Pt is here today for her annual wellness exam, doing fine, just her chronic mid back pain. MRI wasn't completed, she was never notified that the imaging location was approved for [facility], and expiration was mar 20. Not Available [employer] 04/30/2022 10:15:27 06/04/2022 text/html Generic HPI TemplateReported bypatient.Notes:Pt is here to f/u on her MRI from 05/25/22. Results are in her chart. Her labs from 05/07/22 are also in her chart. Not Available [employer] 06/27/2022 21:22:23 05/02/2023 text/html Generic HPI TemplateReported bypatient.Notes:Pt is here for her wellness. No chronic meds. Wellness GABBIE Elias [address] [place] [address], [facility] [address], [place], [address], [employer] 05/02/2023 10:19:52 OBGyn Episode No OBEpisode recorded.
--- OUTSIDE RECORDS SUMMARY | 2024-09-24 12:33 | XMS_ITS | Data Portability ---
Author Organization [facility] Lupis PORTER Address [address] [place] [address] Care Team Providers Care Injury Prevention Coordinator Name Role Phone BINDU TERRELL Strategic Client Executive Assessment Encounter Date Assessment Date Assessment LastModified [...] total, serum 2023 024 yuli [facility], [address], [place], [address], 06/14/2024 16:40:32 TSH + free T4, serum 2023 024 JUAN [facility], [address], [place], [address], 05/25/2024 09:47:57 lipid panel, serum 2023 024 [facility], [address], [place], [address], 05/25/2024 09:47:57 CMP, serum or plasma 2023 024 [facility], [address], [address], [place], [address], 06/14/2024 16:39:55 CBC w/ auto diff 2023 024 [facility], [address], [address], [place], [address], 06/14/2024 16:40:13 vitami n B12 + folate , serum or blood 2023 024 [facility], [address], [address], [place], [address], 05/25/2024 09:47:58 HbA1c (hemog lobin A1c), blood 2023 024 [facility], [address], [address], [place], [address], 06/14/2024 16:39:08 pap, LB + reflex to HR HPV if ASC-U 2015 016 [id number] [facility], [address] , [place], [address], 05/15/2016 04:32:38 Referral dermat ologis t referr al 2023 024 [facility], [address] [place] [address] , [place], [address], 11/10/2023 11:48:35 Procedures None record ed. Surgeries None record ed. Imaging None record ed. Medication Orders None record ed. Patient TargetsNo targets recorded. Patient InstructionsNo instructions recorded. Reason for Referral Graphic Artist Referral for L esion of skin of face macular faint, erythematic type small lesion between eyebrows. Referring Physician: Odalys Mace, Internal Medicine, Encounter Date: 09/23/2023 Results Created Date Observation Date Name Description Value Unit Range Abnormal Flag Note LastModifiedBy Organization Detail LastModifiedTime 04/26/20 16 04/29/2016 pap, LB + refle x HPV mRNA E6/E7 clinical information: normal Postp artum FOLLO W-UP Not Available [address], [address], 04/29/2016 11:46:55 04/26/20 16 04/29/2016 pap, LB + refle x HPV mRNA E6/E7 LMP: normal INFOR MATIO N NOT PROVI DED Not Available [address], [address], 04/29/2016 11:46:55 04/26/20 16 04/29/2016 pap, LB + refle x HPV mRNA E6/E7 prev. Pap: normal INFOR MATIO N NOT PROVI DED Not Available [address], [address], 04/29/2016 11:46:55 04/26/20 16 04/29/2016 pap, LB + refle x HPV mRNA E6/E7 prev. BX: normal INFOR MATIO N NOT PROVI DED Not Available [address], [address], 04/29/2016 11:46:55 04/26/20 16 04/29/2016 pap, LB + refle x HPV mRNA E6/E7 source: Cervix normal Not Available [address], [address], 04/29/2016 11:46:55 04/26/20 16 04/29/2016 pap, LB + refle x HPV mRNA E6/E7 statement of adequacy: normal Satis facto ry for evalu ation . Endoc ervic al/tr ansfo rmati on zone compo nent prese nt. Not Available [address] [place], [address], 04/29/2016 11:46:55 04/26/20 16 04/29/2016 pap, LB + refle x HPV mRNA E6/E7 interpretati on/result: normal Negat kaya for intra epith elial lesio n or malig yun . Not Available [address], [place], [address], 04/29/2016 11:46:55 04/26/20 16 04/29/2016 pap, LB + refle x HPV mRNA E6/E7 comment: normal This case could not be evalu ated with compu ter david abril techn ology . The slide was zita hicks chaim accor ding to felton latham . Not Available [address], [place], [address], 04/29/2016 11:46:55 04/26/20 16 04/29/2016 pap, LB + refle x HPV mRNA E6/E7 cytotechnolo gist: normal BKA, CT( CP) CT kurt serna locat ion: [address] [address] [place] [address] Not Available [address] [address] [place], [address], 04/29/2016 11:46:55 04/27/20 23 04/27/2023 pap, IG + HR HPV Pap, Ig+HR HPV negati ve Not Available Not Available 17:08:32 05/28/20 24 05/28/2024 XR, chest , 2 view No observ ation record ed. [facility] [address], [place], [address], 05/28/2024 18:00:51 09/15/19 25 09/13/2024 MAMMO , scree daphne, digit al, bilat eral No observ ation record ed. [email or web address], [place], [address], 09/20/2024 14:20:20 Result Notes None recorded. Problems Name Problem SNOMED Code Status Onset Date Resolution Date Notes Provider Name and Address Organization Details Recorded Time Body mass index 20-24 - normal 071547320 Active 2024 Federica Lassiter MA null, [place] - [facility] 5 10:03:26 Vitamin D deficiency 09355892 Active 2024 GABBIE Elias Attn: Accountin g,[address] [facility], [place], [address], [place] [facility] 5 18:39:55 Long-term drug therapy Active 2024 GABBIE Elias Attn: Accountin g,[address] [facility], [place], [address], [place] [facility] 5 18:40:06 Past history of section 798027875 Active Emily Isringhau sen [place] [facility] 6 15:29:17 Past history of section 610106517 Completed Emily Isringhau sen [place], [place] [facility] 6 15:29:17 Problem Notes None recorded. Procedures Surgical History Date Name Laterality Status Provider Name and Address Organization Details Recorded Time 6 Suture/Staple removal completed Susana [place] [facility] 03/19/2016 14:39:29 8 Caesarean Section completed Susana [place] [facility] 09/17/2015 12:06:48 D & c after delivery completed Federica Lassiter [place] [facility] 09/23/2023 14:54:19 Imaging Results Imaging Date Name Status LastModified by Organiz ation Details LastModified Time 05/28/2024 XR, chest, 2 view completed [facility] [address], [place], [address], 05/28/2024 18:00:51 09/13/2024 MAMMO, screening, digital, bilateral active [email or web address] [facility] [address], [place], [address], 09/20/2024 14:20:20 Procedure Notes None recorded. Medical Equipment None [...] (vitamin D2) 1,250 mcg (50,000 unit) capsule Take 1 capsule( s) every week by oral route. 2024 active Not Available Not Available Not Avai lable ibuprofen 600 mg tablet 09/22 completed Not [...] and Address Organization Details Last Updated DateTime 162.56 cm 23.5 kg/m2 10522.5 9 g 99 % 99 % 20 /min 67 /min 108 mm[Hg] 68 mm[Hg] Federica Lassiter MA [place] - [facility] 4 14:21:52 Date Recorded Systolic blood pressure Diastolic blood pressure Provider Name and Address Organization Details Last Updated DateTime 09/23/2023 110 mm[Hg] 70 mm[Hg] GABBIE Elias Attn: Accounting,[address] [place], [address], [facility] 09/23/2023 14:46:11 Date Recorded Body height Body mass index (BMI) Body weight Respiratory rate Oxygen saturation Oxygen saturation in Arterial blood by Pulse oximetry Heart rate Systolic blood pressure Diastolic blood pressure Provider Name and Address Organization Details Last Updated DateTime 162.56 cm 23.7 kg/m2 73424.7 5 g 20 /min 100 % 100 % 68 /min 116 mm[Hg] 82 mm[Hg] Federica Lassiter MA [facility] 5 10:04:55 Date Recorded Systolic blood pressure Diastolic blood pressure Provider Name and Address Organization Details Last Updated DateTime 06/27/2024 120 mm[Hg] 80 mm[Hg] GABBIE Elias Attn: Accounting[address] [place], [address], [facility] 06/27/2024 10:20:30 Date Recorded Body weight Body mass index (BMI) Body height Systolic blood pressure Diastolic blood pressure Provider Name and Address Organization Details Last Updated DateTime 03/11/2016 73993.22 498 g 26.4 kg/m2 162.56 cm 128 mm[Hg] 72 mm[Hg] Susana solano MA [facility] 6 15:28:54 Date Recorded Body height Body weight Body mass index (BMI) Systolic blood pressure Diastolic blood pressure Provider Name and Address Organization Details Last Updated DateTime 03/19/2016 162.56 cm 63152.52 417 g 24.2 kg/m2 112 mm[Hg] 66 mm[Hg] Susana solano MA [facility] 6 14:44:57 Date Recorded Body height Body weight Body mass index (BMI) Systolic blood pressure Diastolic blood pressure Provider Name and Address Organization Details Last Updated DateTime 04/26/2016 162.56 cm 44850.75 g 23.7 kg/m2 98 mm[Hg] 70 mm[Hg] Susana solano MA [facility] 6 10:59:34 Social History Question Answer Notes LastModified by Organizat ion Details LastModified Time Tobacco Smoking Status Never Smoker Susana Santoro MA null, [facility] 09/17/2015 11:39:29 What Is Your Level [...] Anxious, Or Unable To Sleep At Night)? [id number] Information not available 09/23/2023 Do You Use [...] of breast [email or web address] Not available 15:28:54 Father Harmful pattern of use of alcohol [email or web address] Not available 2023 14:54:35 Father Hypercholest [...] Disorder N Colon Polyps N Heart Attack (OR) N Diabetes N Cardiomyopathy N Blood Transfusions [...] dose or 50 mcg/0.25mL dose 1 completed Federica Lassiter [place], [place] [facility] 06/27/2024 10:03:00 Tdap 6 completed SHANA [place] [facility] 06/27/2024 10:03:00 Tdap 5 completed [place] [facility] 06/27/2024 10:03:00 Influenza, split virus, trivalent, preservative 1 completed SHA[place] [facility] 06/27/2024 10:03:00 Influenza, split virus, quadrivalent, PF 6 completed Federica Lassiter MA [facility], [place] - [facility] 06/27/2024 10:03:00 Past Encounters Encounter ID Performer Location Encounter Start Date Encounter Closed Date Diagnosis/Indication Diagnosis SNOMED-CT Code Diagnosis ICD10 Code Diagnosis Note [id number] Emily Landry ([place] [address]) [address] [facility] [place] [address] 09/17/2015 11:15:41 09/18/2015 12:28:46 Normal 77676114 Z34.91 Past pregn nayely history of section 937280624 Z98.89 [id number] Emily Landry ([place] [address]) [address] [facility] [place] [address] 10/13/2015 14:14:28 10/13/2015 16:00:01 Normal 85183119 Z34.91 [id number] Emily Landry ([place] [address]) [address] [facility] [place] [address] 11/06/2015 15:11:48 11/06/2015 16:33:30 Normal 40498554 Z34.91 Past pregn nayely history of section 626158901 Z98.89 [id number] NABILA Blankenship ([place] [address]) [address] [facility] [place] [address] 12/04/2015 11:55:46 12/04/2015 18:20:39 Normal 92283054 Z34.91 Past pregn nayely history of section 732679166 Z98.89 [id number] MD Jonatan Rosas ([place] [address]) [address] [facility] [place] [address] 12/25/2015 14:20:37 12/25/2015 15:26:11 Normal 20771087 Z34.91 Past pregn nayely history of section 569412699 Z98.89 [id number] MD Jonatan Rosas ([place] [address]) [address] [facility] [place] [address] 01/15/2016 11:12:15 01/15/2016 14:27:53 Normal 62954807 Z34.91 Past pregn nayely history of section 042706404 Z98.89 [id number] MD Jonatan Rosas ([place] [address]) [address] [facility] [place] [address] 02/06/2016 11:34:12 02/06/2016 12:57:50 Normal 49807758 Z34.91 Past pregn nayely history of section 364134242 Z98.89 [id number] MD Jonatan Rosas ([place] [address]) [address] [facility] [place] [address] 02/23/2016 10:44:52 02/23/2016 13:04:46 Normal 43114507 Z34.91 Past pregn nayely history of section 394395345 Z98.89 [id number] MD Jonatan Rosas ([place] [address]) [address] [facility] [place] [address] 03/01/2016 14:46:14 03/01/2016 16:17:08 Normal 54178432 Z34.91 Past pregn nayely history of section 734367960 Z98.89 [id number] MD Jonatan Rosas ([place] [address]) [address] [facility] [place] [address] 03/11/2016 15:15:40 03/12/2016 12:14:15 Normal 75373691 Z34.91 Past pregn nayely history of section 598077640 Z98.077 [id number] MD Jonatan Rosas ([place] [address]) [address] [facility] [place] [address] 03/19/2016 14:08:58 03/22/2016 10:12:10 Removal of juan david 02473747 Z48.02 [id number] MD Jonatan Rosas ([place] [address]) [address] [facility] [place] [address] 04/26/2016 10:40:40 04/26/2016 14:32:49 care 798235126 Z39.2 [id number] GABBIE Elias [facility] [place] [address] [place] [address] 09/23/2023 14:04:24 09/23/2023 14:53:57 Lesion of skin of face 3255021241 06 L98.9 refer to Derm for skin lesion evaluation Cholesterol screening 27 6244045 Z13.220 fasting lipids due in apr. Diabetes m ellitus screening 607431681 Z13.1 a1c screening in Apr Long-term drug therapy 739561971 Z79.899 cmp, cbc and b12, folate labs are due in apr Vitamin D deficiency 347 28449 E55.9 pt is on high dose Rx. will check updated vit D lab in apr Thyroid di sorder screening 787385307 Z13.29 screening thyroid labs are due in apr. [id number] GABBIE Elias [facility] [place] [address] [place] [address] 06/27/2024 09:39:18 06/27/2024 10:25:32 Body mass index 20-24 - normal 671588842 Z68.23 BMI is 23.7 Vitamin D deficiency 347 03841 E55.9 Patient is taking vitamin-D high-dose supplement once weekly Long-term drug therapy 918392379 Z79.899 All labs are reviewed and up-to-date Adult [facility] th examination 741206849 Z00.00 Annual wellness exam completed Health Concerns Section Related Observation LastModified by Organization Detai ls LastModified Time None Recorded Concern Status LastModified by Organization Details LastModified Time None Recorded Advance Directives Directive None Recorded Payers Encounter Date Sequence Insurance Name Policy Number Policy Broderick Covered Member ID Broderick Member ID Guarantor Name 03/11/2016 1 [facility] ([facility] [id number] Parakey [id number] [employer] 03/19/2016 1 [facility] [employer] [facility] [employer] ([facility]) [id number] Parakey [id number] [employer] 04/26/2016 1 [facility] [id number] Parakey [id number] [employer] 09/23/2023 1 [place] [id number] Parakey [id number] [email or web address] 06/27/2024 1 [place] [id number] Michelle Gould [id number] Daryl Gould Notes Date Note Type Note Provider Name and Address Organization Details Recorded Time 09/23/2023 text/html pt here to re-establish. she needs Derm referral for faint forehead skin lesion that she noted. is due for routine labs. GABBIE Elias Attn: Accounting,[address] [place], [address], [facility] 09/29/2023 00:09:42 06/27/2024 text/html Patient is here for annual wellness exam. She does take vitamin-D high-dose supplement for deficiency and has labs up-to-date. She has no new complaints. GABBIE Elias Attn: Accounting,[address] [place], [address], [facility] 06/27/2024 18:40:34 OBGyn Episode Ob Episode Information Episode Created Date Number of Fetuses Patient Bloodtype Patient rh Status Prepregnancy Weight lbs Domestic Partner Domestic Partner Phone Father Name Supervisor [employer]od[employer] Assembly Status 09/17/19 16 2 CLOSED Fetus Data First Name Last Name Admitted to NICU Weight (g) Sex Living Outcome Pediatric Complications Fetus ID Race Codes Race Delivery Type 1559.22 25 M Prematur e 25447 1871.06 7 M Prematur e 28528 Carl Calculation Initial Carl Date Initial Exam [...] Tubal Sterilization Discharge Date Comments 0 33 [facility] [place]. Discharge Information Feeding Method Contraceptive Method Maternal HG B and HCT Levels Ob Episode Information Episode Created Date Number of Fetuses Patient Bloodtype Patient rh Status Prepregnancy Weight lbs Domestic Partner Domestic Partner Phone Father Name Supervisor [employer] Assembly Status 09/17/19 16 1 CLOSED Fetus Data First Name Last Name Admitted to NICU Weight (g) Sex Living Outcome Pediatric Complications Fetus ID Race Codes Race Delivery Type 2778.25 1 F Full Term 78143 Carl Calculation Initial Carl Date Initial Exam [...] Complications Tubal Sterilization Discharge Date Comments 8 [facility] [place] Discharge Information Feeding Method Contraceptive Method Maternal HG B and HCT Levels Ob Episode Information Episode Created Date Number of Fetuses Patient Bloodtype Patient rh Status Prepregnancy Weight lbs Domestic Partner Domestic Partner Phone Father Name Supervisor Ke[employer] Assembly Status 09/17/19 16 2 DELETED Carl Calculation [...] Domestic Partner Domestic Partner Phone Father Name Supervisor Keymod[employer] Assembly Status 09/17/19 16 1 O Positive Desires [facility] delivery CLOSED Fetus Data First Name Last Name Admitted to NICU Weight (g) Sex Living Outcome Pediatric Complications Fetus ID Race Codes Race Delivery Type Silvia Gould false 3798.83 3 F true Full Term 90468 2106-3 White Problems Problem Notes Problem Name Start Date End Date Resolution Snomed Code Not e Past history of ce sarean section 714738030 Carl Calculation Initial Carl Date Initial Exam [...] Latest Days Gestation 0 03/22/20 16 0 Pre- Flowsheet Flowsheet Date 09/17/2015 Andrea Score Blood Edema Fundus Height Fundus Units Glucose Ketones Leukocytes Nitrite Labor Signs Protein Cervic Dilation Cervic Effacement Cervic Station 13 wks 0cm 0% -4 Type Weight in lbs Pre/Post Dialysis Refused 133.770505389953 BP Diastolic BP Location Tested BP Systolic [...] Type Weight in lbs Pre/Post Dialysis Refused 136.271491237092 BP Diastolic BP Location Tested BP Systolic [...] Type Weight in lbs Pre/Post Dialysis Refused 139.117298496736 BP Diastolic BP Location Tested BP Systolic [...] Type Weight in lbs Pre/Post Dialysis Refused 145.9359313516 BP Diastolic BP Location Tested BP Systolic [...] Type Weight in lbs Pre/Post Dialysis Refused 146.688504877700 BP Diastolic BP Location Tested BP Systolic [...] Type Weight in lbs Pre/Post Dialysis Refused 149.574085572287 BP Diastolic BP Location Tested BP Systolic BP Type 76 108 sitting Fetus Heart Rate Present A 146 Present Fetus Movement A Yes Comments Great questions. Repeat c/s planned for 03/15 @ [facility] Flowsheet Date 02/23/2016 Andrea Score Blood Edema Fundus Height Fundus Units Glucose Ketones Leukocytes Nitrite Labor Signs Protein Cervic Dilation Cervic Effacement Cervic Station 33 cm Type Weight in lbs Pre/Post Dialysis Refused 154.219313438974 BP Diastolic BP Location Tested BP Systolic [...] Type Weight in lbs Pre/Post Dialysis Refused 155.17531556051 BP Diastolic BP Location Tested BP Systolic [...] Type Weight in lbs Pre/Post Dialysis Refused 154.838442002274 BP Diastolic BP Location Tested BP Systolic BP Type 72 128 sitting Fetus Heart Rate Present A 141 Present Fetus Movement A Yes Comments doing well. c/s is Tuesday! Flowsheet Date 03/19/2016 Andrea Score Blood Edema Fundus Height Fundus Units Glucose Ketones Leukocytes Nitrite Labor Signs Protein Cervic Dilation Cervic Effacement Cervic Station Type Weight in lbs Pre/Post Dialysis Refused 141.962400938070 BP Diastolic BP Location Tested BP Systolic [...]
== END 2024-09-24 10:41 | disposition home or self-care (01) ==
LOC: ANHIMG 10:45
PROVIDERS: PCP Physician Assistant; Visit Provider Obstetrics & Gynecology
DX: N63.20 Unspecified lump in the left breast, unspecified quadrant (principal); R92.8 Other abnormal and inconclusive findings on diagnostic imaging of breast
CPT/HCPCS: 76642; 77061; 77065; G0279

== ENCOUNTER 2025-03-27 10:20 | Outpatient (CLI) | payer BC, SELFPAY ==
--- NOTE | ~2025-03-27 | US_ITS ---
US breast LT limited 03/27/2025 10:58 Indication: Follow-up left breast mass Procedure: High-resolution Limited ultrasound of the left breast Comparison: 09/24/2024 Findings: Decreased size of 5 mm cyst at 9:00, 3 cm from the nipple in the left breast. This cyst measured 1 cm on prior examination. No suspicious masses to suggest malignancy. Impression: 1: No sonographic evidence for malignancy. Routine yearly screening mammogram and regular clinical breast examination are recommended. BI-RADS CATEGORY 1 - NEGATIVE Reviewed, dictated and finalized at location B. Impression: 1: No sonographic evidence for malignancy. Routine yearly screening mammogram and regular clinical breast examination are recommended. BI-RADS CATEGORY 1 - NEGATIVE
--- OUTSIDE RECORDS SUMMARY | 2025-03-27 11:34 | XMS_ITS | Clinical Summary ---
Author Organization [facility] Address [address] [place] [address] Care Team Providers Care Java Websphere Developer Name Role Phone Odalys Patino Primary Care Pr ovider Source Comments [facility],non-owned Affiliates and Associated Physician Practices is amultiple site organization consisting of ambulatory clinics and [place] sitesin [place] and [place]. This disclosure is being madepursuant to the [...] Done Comments LIPID TESTING 1981 MAMMOGRAM 1981 HIV SCREENING 01/29/1996 HEPATITIS C SCREENING 01/24/1999 DTAP/TDAP/TD VACCINES (1 - Tdap) 01/29/2000 HEPATITIS B VACCINE (1 of 3 - 19+ 3-dose series) 01/29/2000 PAP SMEAR 2002 HPV VACCINE (1 - 3-dose SCDM series) 01/29/2008 DEPRESSION SCREENING 05/30/2024 COVID-19 VACCINE (1 - 2023-2 5 season) 2025 INFLUENZA VACCINE (#1) 2025 ZOSTER VACCINE (1 of 2) 2031 [...] to complete this topic Insurance Care Teams Java Websphere Developer Relationship Specialty Start Date End Date Odalys Patino PA [address] [place] [address] PCP - General 07/30/21
--- OUTSIDE RECORDS SUMMARY | 2025-03-27 11:34 | XMS_ITS | Clinical Summary ---
Author Organization [facility] Address [address] [place] [address] Phone Care Team Providers Care Labor Law Professor Name Role Phone Unavailable Primary Care Provider Unavailabl e Allergies No known active allergies Medications Vit-Fe Fumarate-FA ( VITAMIN PO) Take by mouth. Active Hdonjc-AS-Oquxet in-Petrolatum (PREPARATION H RE) by Rectal route. [...] 5:56 AM CDT Height 162.6 cm (5' 4) 03/15/2016 5:56 AM CDT Body Mass Index 26.43 03/15/2016 5:56 AM CDT Plan of Treatment Health Maintenance Due Date Last Done Comments Hepatitis C Virus (HCV) Screening 1981 Hepatitis B Immunization (1 of 3 - 19+ 3-dose series) 01/29/2000 Pap Smear 2002 Human Papillomavirus (HPV) Immunization (1 - 3-dose SCDM series) 01/29/2008 Cervical Cancer Screening (CCS) 2011 HPV/Cotest 2011 Influenza Immunization (#1) 2025 03/17/2016 SARS-COV-2 Immunization ( season) 2025 Respiratory Syncytial Virus (RSV) Immunization (Adult) (1 - 1-dose 75+ series) 01/29/2056 DTaP/Tdap/Td Immunization Discontinued 03/17/2016 Meningococcal Immunization (ACWY) Aged Out No longer eligible based on patient's age to complete this topic Pneumococcal Immunization Combined Aged Out No longer eligible based on [...]
== END 2025-03-27 10:21 | disposition home or self-care (01) ==
LOC: ANHFOHIMG 10:20
PROVIDERS: PCP Physician Assistant; Visit Provider Obstetrics & Gynecology
DX: N63.20 Unspecified lump in the left breast, unspecified quadrant (principal)
CPT/HCPCS: 76642